=== PATIENT | female | born 1990 | race African-American/Black ===

== ENCOUNTER 2016-09-04 11:42 | Emergency (ER) | payer MEDICAID ==
[2016-09-04 12:00] VITALS: BP 124/80
--- NOTE | 2016-09-04 12:07 | ER Document Report ---
ED Medical Screen (RME) - General Stated Complaint: URINARY PROBLEM Notes: 3 days pyuria, urgency, no blood no abnl vaginal d/c or bleeding I have greeted and performed a rapid initial assessment of this patient. A comprehensive ED assessment and evaluation of the patient, analysis of test results and completion of the medical decision making process will be conducted by additional ED providers. - Related Data Allergies/Adverse Reactions: No Known Allergies Allergy (Unverified 09/04/16 12:06) Physical Exam - Vital signs Vitals: Temp Pulse Resp BP Pulse Ox 98.0 F 98 16 124/80 96 09/04/16 11:58 09/04/16 11:58 09/04/16 11:58 09/04/16 11:58 09/04/16 11:58 Course - Vital Signs Vital signs: Temp Pulse Resp BP Pulse Ox 98.0 F 98 16 124/80 96 09/04/16 11:58 09/04/16 11:58 09/04/16 11:58 09/04/16 11:58 09/04/16 11:58
[2016-09-04 13:14] LABS: AMORPHOUS SEDIMENT,URINE TRACE /HPF; APPEARANCE,URINE SLIGHTLY-CLOUDY; BILIRUBIN,URINE NEGATIVE (NEGATIVE); GLUCOSE, URINE NEGATIVE (NEGATIVE); KETONES,URINE NEGATIVE (NEGATIVE); LEUKOCYTE ESTERASE,URINE NEGATIVE (NEGATIVE); NITRITE,URINE NEGATIVE (NEGATIVE); PROTEIN,URINE NEGATIVE (NEGATIVE); URINE SPECIFIC GRAVITY 1.015
--- NOTE | 2016-09-04 14:30 | ER Document Report ---
ED General - General Chief Complaint: Urinary Problem Stated Complaint: URINARY PROBLEM Mode of Arrival: Ambulatory Information source: Patient Notes: 26 yr old female who is presents with complaints of right flank pain. Patient has had a history of kidney stones kidney infections. Patient notes this feels more like a kidney infection rather than a kidney stone. Denies any fevers or chills nausea vomiting or diarrhea. Patient denies any burning on urination,, patient does note hesitancy TRAVEL OUTSIDE OF THE [place] IN LAST 30 DAYS: No - HPI Onset: Just prior to arrival Onset/Duration: Sudden Quality of pain: Achy Severity: Mild Pain Level: 1 Associated symptoms: Nausea Exacerbated by: Denies Relieved by: Denies Similar symptoms previously: No Recently seen / treated by doctor: No - Related Data Allergies/Adverse Reactions: No Known Allergies Allergy (Unverified 09/04/16 12:06) Past Medical History - Social History Smoking Status: Never Smoker Cigarette use (# per day): No Chew tobacco use (# tins/day): No Smoking Education Provided: No Frequency of alcohol use: None Drug Abuse: None Family History: Reviewed & Not Pertinent Patient has suicidal ideation: No Patient has homicidal ideation: No Renal/ Medical History: Reports: Hx Kidney Stones. Denies: Hx Peritoneal Dialysis Surgical Hx: Negative - Immunizations Hx Diphtheria, Pertussis, Tetanus Vaccination: Yes Review of Systems - Review of Systems Notes: REVIEW OF SYSTEMS: CONSTITUTIONAL : Denies fever, chills, or sweats. Denies recent illness. EENT: Denies eye, ear, throat, or mouth pain or symptoms. Denies nasal or sinus congestion or discharge. Denies throat, tongue, or mouth swelling or difficulty swallowing. CARDIOVASCULAR: Denies chest pain. Denies palpitations or racing or irregular heart beat. Denies ankle edema. RESPIRATORY: Denies cough, cold, or chest congestion. Denies shortness of breath, difficulty breathing, or wheezing. GASTROINTESTINAL: admits to right flank pain GENITOURINARY: admits ot hesitancy FEMALE GENITOURINARY: Denies vaginal bleeding, heavy or abnormal periods, irregular periods. Denies vaginal discharge or odor. MUSCULOSKELETAL: Denies back or neck pain or stiffness. Denies joint pain or swelling. SKIN: Denies rash, lesions or sores. HEMATOLOGIC : Denies easy bruising or bleeding. LYMPHATIC: Denies swollen, enlarged glands. NEUROLOGICAL: Denies confusion or altered mental status. Denies passing out or loss of consciousness. Denies dizziness or lightheadedness. Denies headache. Denies weakness or paralysis or loss of use of either side. Denies problems with gait or speech. Denies sensory loss, numbness, or tingling. Denies seizures. PSYCHIATRIC: Denies anxiety or stress. Denies depression, suicidal ideation, or homicidal ideation. ALL OTHER SYSTEMS REVIEWED AND NEGATIVE. Dictation was performed using [employer] voice recognition software PHYSICAL EXAMINATION: GENERAL: Well-appearing, well-nourished and in no acute distress. HEAD: Atraumatic, normocephalic. EYES: Pupils equal round and reactive to light, extraocular movements intact, conjunctiva are normal. ENT: Nares patent, oropharynx clear without exudates. Moist mucous membranes. NECK: Normal range of motion, supple without lymphadenopathy LUNGS: Breath sounds clear to auscultation bilaterally and equal. No wheezes rales or rhonchi. HEART: Regular rate and rhythm without murmurs ABDOMEN: Soft, gravid abd, hr 154 Female : deferred Musculoskeletal: Normal range of motion, no pitting or edema. No cyanosis. NEUROLOGICAL: Cranial nerves grossly intact. Normal speech, normal gait. Normal sensory, motor exams PSYCH: Normal mood, normal affect. SKIN: Warm, Dry, normal turgor, no rashes or lesions noted. Physical Exam - Vital signs Vitals: Temp Pulse Resp BP Pulse Ox 98.0 F 98 16 124/80 96 09/04/16 11:58 09/04/16 11:58 09/04/16 11:58 09/04/16 11:58 09/04/16 11:58 Course - Re-evaluation Re-evalutation: 09/04/16 16:06 Patient will be treated as a kidney stone given that she is I cannot CT her at this time, she does have a small amount of blood in her urine denies any vaginal bleeding or discharge. There is no sign of infection. Patient will be treated symptomatically and has been instructed to return immediately if there is any worsening symptoms or concerns After performing a Medical Screening Examination, I estimate there is LOW risk for ACUTE APPENDICITIS, BOWEL OBSTRUCTION, ACUTE CHOLECYSTITIS, PERFORATED DIVERTICULITIS, INCARCERATED HERNIA, PANCREATITIS, PELVIC INFLAMMATORY DISEASE, PERFORATED ULCER, ECTOPIC , or TUBO-OVARIAN ABSCESS, thus I consider the discharge disposition reasonable. Also, there is no evidence or peritonitis , sepsis, or toxicity. The patient and I have discussed the diagnosis and risks , and we agree with discharging home with close follow-up with the understanding that symptoms and presentations can change. We also discussed returning to the Emergency Department immediately if new or worsening symptoms occur. We have discussed the symptoms which are most concerning (e.g., bloody stool, fever, changing or worsening pain, vomiting) that necessitate immediate return. - Vital Signs Vital signs: Temp Pulse Resp BP Pulse Ox 98.0 F 98 16 124/80 96 09/04/16 11:58 09/04/16 11:58 09/04/16 11:58 09/04/16 11:58 09/04/16 11:58 - Laboratory Laboratory results interpreted by me: 09/04/16 12:00 Urine Blood SMALL H Urine Urobilinogen 2.0 H Discharge - Discharge Clinical Impression: Kidney stone on right side Qualifiers: Weeks of gestation: unspecified Qualified Code(s): Z33.1 - state, incidental Condition: Stable Disposition: HOME, SELF-CARE Instructions: Kidney Stone ([facility]) Prescriptions: Hydrocodone/Acetaminophen [[place] 5-325 mg Tablet] 1 tab PO Q6 #10 tablet Promethazine HCl [Phenergan 25 mg Tablet] 25 - 50 mg PO ASDIR PRN #12 tablet PRN Reason: Tamsulosin HCl [Flomax 0.4 mg Cap.sr] 0.4 mg PO DAILY #7 cap.sr.24h
== END 2016-09-04 14:10 | disposition home or self-care (01) ==
LOC: ER 11:42
DX: N20.0 Calculus of kidney (principal); R10.9 Unspecified abdominal pain; Z33.1 Pregnant state, incidental; Z87.442 Personal history of urinary calculi
CPT/HCPCS: 81001; 87086; 99284

== ENCOUNTER 2016-12-27 01:43 | Outpatient (CLI) | payer MEDICAID ==
[2016-12-27 02:12] LABS: APPEARANCE,URINE CLEAR; BILIRUBIN,URINE NEGATIVE (NEGATIVE); GLUCOSE, URINE NEGATIVE (NEGATIVE); KETONES,URINE NEGATIVE (NEGATIVE); LEUKOCYTE ESTERASE,URINE NEGATIVE (NEGATIVE); NITRITE,URINE NEGATIVE (NEGATIVE); PROTEIN,URINE NEGATIVE (NEGATIVE); URINE SPECIFIC GRAVITY 1.004; UROBILINOGEN,URINE NEGATIVE mg/dL (<2.0)
[2016-12-27 02:43] LABS: URINE BARBITURATES SCREEN NEGATIVE; URINE METHADONE SCREEN NEGATIVE; URINE OPIATES LOW NEGATIVE; URINE PHENCYCLIDINE SCREEN NEGATIVE
[2016-12-27] MEDS ORDERED: HYDROXYZINE PAMOATE 50 MG CAPSULE ONE (03:36)
--- NOTE | 2016-12-27 03:51 | Non Stress Test Report ---
Non Stress Test Datetime Report Generated by CPN: 12/27/2016 03:51 DEMOGRAPHIC Test Number: 1 EGA NST: 38.1 INDICATION Indication for Study: Ordered by Provider MONITORING Monitor Explained: Monitor Explained; Test Explained; Patient Verbalized Understanding Time on Monitor: 12/27/2016 02:04 Time off Monitor: 12/27/2016 03:25 NST Duration: 81 NST INTERVENTIONS NST Interventions: PO Hydration; Reposition Patient Physician Notified NST: Dr. Vidal BABY A: [id number] BABY A Movement : Present Contraction Frequency : 1.5-8 FHR Baseline : 135 Accelerations : 15X15 Decelerations : None Variability : Moderate 6-25bpm NST Review: Meets Criteria for Reactive NST NST Review and Verified By : Param Lentz RN NST Results: Reactive NST REPORT Report Trigger: Send Report
== END 2016-12-27 03:54 | disposition home or self-care (01) ==
LOC: LC 01:43
PROVIDERS: ATTEND Obstetrics & Gynecology
PROC: 4A1HXCZ Monitoring of Products of Conception, Cardiac Rate, External Approach (ICD-10-PCS; principal; 2016-12-27)
DX: O47.1 False labor at or after 37 completed weeks of gestation (principal); Z3A.38 38 weeks gestation of pregnancy
CPT/HCPCS: 59025; 81005; 80307; J3490

== ENCOUNTER 2017-01-15 01:53 | Inpatient (IN) | payer MEDICAID ==
[2017-01-15] MEDS ORDERED: RINGERS SOLUTION,LACTATED 1,000 ML IV ONE (02:12)
[2017-01-15] MEDS ORDERED: RINGERS SOLUTION,LACTATED 1,000 ML IV PRN (02:12)
[2017-01-15] MEDS ORDERED: MISOPROSTOL 0.2 MG TABLET ONE (02:42)
[2017-01-15] MEDS ORDERED: LIDOCAINE 1% INJ-PF (10 MG/ML) 30 ML SDV ONE (02:42)
[2017-01-15] MEDS ORDERED: OXYTOCIN/NORMAL SALINE 20 UNIT/1,000 ML RTUINJ ONE (02:42)
[2017-01-15 02:46] LABS: ABSOLUTE BASOPHILS # (AUTO) 0.1 10^3/uL (0.0-0.2); ABSOLUTE EOSINOPHILS # (AUTO) 0.1 10^3/uL (0.0-0.6); ABSOLUTE LYMPHOCYTES (AUTO) 2.6 10^3/uL (0.5-4.7); ABSOLUTE MONOCYTES (AUTO) 0.9 10^3/uL (0.1-1.4); ABSOLUTE NEUT (AUTO) 4.1 10^3/uL (1.7-8.2); BASOPHILS % (AUTO) 1.1 % (0-2); EOSINOPHILS % (AUTO) 0.8 % (0-6); HEMATOCRIT 36.4 % (36.0-47.0); HEMOGLOBIN 12.1 g/dL (12.0-15.5); HGB HCT DIFFERENCE -0.1; LYMPHOCYTES % (AUTO) 33.7 % (13-45); MEAN CORPUSCULAR HEMOGLOBIN 30.1 pg (27.0-33.4); MEAN CORPUSCULAR HGB CONC 33.3 g/dL (32.0-36.0); MEAN CORPUSCULAR VOLUME 91 fl (80-97); MONOCYTES % (AUTO) 11.8 % (3-13); RED BLOOD COUNT 4.03 10^6/uL (3.72-5.28); RED CELL DISTRIBUTION WIDTH 13.7 % (11.5-14.0); SEGMENTED NEUTROPHILS % (AUTO) 52.6 % (42-78); WHITE BLOOD COUNT 7.9 10^3/uL (4.0-10.5)
[2017-01-15 03:17] LABS: APPEARANCE,URINE CLOUDY; BILIRUBIN,URINE NEGATIVE (NEGATIVE); GLUCOSE, URINE NEGATIVE (NEGATIVE); KETONES,URINE NEGATIVE (NEGATIVE); LEUKOCYTE ESTERASE,URINE NEGATIVE (NEGATIVE); NITRITE,URINE NEGATIVE (NEGATIVE); PROTEIN,URINE NEGATIVE (NEGATIVE); UROBILINOGEN,URINE NEGATIVE mg/dL (<2.0)
[2017-01-15 03:38] LABS: URINE BARBITURATES SCREEN NEGATIVE; URINE METHADONE SCREEN NEGATIVE; URINE OPIATES LOW NEGATIVE; URINE PHENCYCLIDINE SCREEN NEGATIVE
[2017-01-15 03:39] LABS: ALANINE AMINOTRANSFERASE 30 U/L (9-52); ALBUMIN 3.3 g/dL (3.5-5.0); ALKALINE PHOSPHATASE 159 U/L (38-126); ANION GAP 12 (5-19); ASPARTATE AMINO TRANSFERASE 19 U/L (14-36); BILIRUBIN,DIRECT 0.4 mg/dL (0.0-0.4); BILIRUBIN,TOTAL 0.4 mg/dL (0.2-1.3); BLOOD UREA NITROGEN 9 mg/dL (7-20); CALCIUM 9.1 mg/dL (8.4-10.2); CARBON DIOXIDE 18 mmol/L (22-30); CHLORIDE 109 mmol/L (98-107); CREATININE RESULT 0.81 mg/dL (0.52-1.25); GLUCOSE 96 mg/dL (75-110); LDH 423 U/L (313-618); POTASSIUM 4.2 mmol/L (3.6-5.0); URIC ACID 5.7 mg/dL (2.5-6.2)
[2017-01-15] MEDS ORDERED: ACETAMINOPHEN WITH CODEINE #3 TABLET ONE (04:32)
[2017-01-15] MEDS ORDERED: IBUPROFEN 800 MG TABLET ONE (04:32)
--- NOTE | 2017-01-15 05:39 | Delivery Summary ---
Del Sum A-C Datetime Report Generated by CPN: 01/15/2017 05:39 DELIVERY PERSONNEL DELIVERY PERSONNEL: [phone] Delivery Doctor:: Miguelina Flores MD Labor and Delivery Nurse:: Christine Aranda RN Nursery Nurse:: Nu Mcnulty RN Sausage Canner/PROPERTY INSPECTOR: Farnaz Green, ST MATERNAL INFORMATION Delivery Anesthesia: None Medications After Delivery: Pitocin Bolus-Please Comment; Pitocin Drip 20 Units/1000ml NSS Estimated Blood Loss (ml): 200 Maternal Complications: Precipitous Labor (<3hrs) LABOR SUMMARY EDC: 01/09/2017 00:00 No. Babies in Womb: 1 Attempted: No Labor Anesthesia: None LABOR INFORMATION Reason for Induction: Not Applicable Onset of Labor: 01/15/2017 02:00 Complete Dilatation: 01/15/2017 03:36 Oxytocin: N/A Group B Beta Strep: Negative Antibiotics # of Doses: 0 Steroids Given: None Reason Steroids Not Administered: Not Applicable MEMBRANES Membranes Rupture Method: Artificial Rupture of Membranes: 01/15/2017 03:07 Length of Rupture (hr): 0.57 Amniotic Fluid Color: Bloody Amniotic Fluid Amount: Small Amniotic Fluid Odor: Normal STAGES OF LABOR Stage 1 hr: 1 Stage 1 min: 36 Stage 2 hr: 0 Stage 2 min: 5 Stage 3 hr: 0 Stage 3 min: 4 Total Time in Labor hr: 1 Total Time in Labor min: 45 VAGINAL DELIVERY Episiotomy: None Laceration Extension: First Degree Laceration Type: Perineal Laceration Repair: Yes Laceration Repair Note: 2-0 chromic Sponge Count Correct: N/A Sharps Count Correct: Yes CSECTION DELIVERY Primary Indication: N/A Secondary Indication: N/A CSection Incidence: N/A Labor: N/A Elective: N/A CSection Incision: N/A BABY A INFORMATION Delivery Date/Time: 01/15/2017 03:41 Method of Delivery: Vaginal Born in Route : No : N/A Forceps: N/A Vacuum Extraction: N/A Shoulder Dystocia : No PRESENTATION/POSITION BABY A Presentation: Cephalic Cephalic Presentation: Vertex Vertex Position: Left Occipital Anterior Breech Presentation: N/A PLACENTA INFORMATION BABY A Placenta Delivery Time : 01/15/2017 03:45 Placenta Method of Delivery: Spontaneous Placenta Status: Delivered SCORES BABY A Heart Rate 1 min: >100 bpm Resp Effort 1 min: Good Cry Reflex Irritability 1 min: Cough or Sneeze or Pulls Away Muscle Tone 1 min: Active Motion Color 1 min: Body [place], Extremities Blue Resuscitation Effort 1 min: Tactile Stimulation SCORE 1 MIN: 9 Heart Rate 5 min: >100 bpm Resp Effort 5 min: Good Cry Reflex Irritability 5 min: Cough or Sneeze or Pulls Away Muscle Tone 5 min: Active Motion Color 5 min: Body [place], Extremities Blue Resuscitation Effort 5 min: Tactile Stimulation SCORE 5 MIN: 9 INFANT INFORMATION BABY A Gestational Age at Delivery: 40.6 Gestational Status: Full Term- 39- 40.6 Weeks Outcome : Liveborn Infant Condition : Stable Infant Sex: Female IDENTIFICATION BABY A Verification Date/Time: 01/15/2017 04:03 ID Band Number: [id number] Mother's Name Verified: Yes RN Verifying : Juanita Barrientos, RN _ Xiomara Mujica, RN WEIGHT/LENGTH BABY A Birthweight (gm): 3590 Weight (lb): 7 Weight (oz): 15 Length (in): 20.00 Length (cm): 50.80 CORD INFORMATION BABY A No. Cord Vessels: 3 Nuchal Cord : Around Neck x1, Loose Cord Blood Taken: Yes-For Eval (Mom's Blood Type - or O+) Infant Suction: Mouth ASSESSMENT BABY A Infant Complications: Decreased Variability; Multiple Variable Decels Respirations: Appears Normal Skin to Skin: Yes Skin to Skin Time (min): 25 Tracer Lathe Set Up Operator/ALS Called : No Infant Care By: L. Mcnulty, RN Transferred To: Remains with Mother BABY B INFORMATION : N/A SIGNATURES Signature: with User ID: [email or web address]
[2017-01-15] MEDS ORDERED: PSEUDOEPHEDRINE HCL 30 MG TABLET PO PRN (05:48)
[2017-01-15] MEDS ORDERED: MEASLES,MUMPS&RUBELLA VACC/PF 0.5 ML VIAL SUBCUT PRN (05:48)
[2017-01-15] MEDS ORDERED: ACETAMINOPHEN 650 MG SUPP.RECT PR PRN (05:48)
[2017-01-15] MEDS ORDERED: MAGNESIUM HYDROXIDE SUSP 30 ML UDCUP PO PRN (05:48)
[2017-01-15] MEDS ORDERED: DIBUCAINE 1% OINTMENT 28 GM TP PRN (05:48)
[2017-01-15] MEDS ORDERED: DIPHENHYDRAMINE HCL 25 MG CAPSULE PO PRN (05:48)
[2017-01-15] MEDS ORDERED: PROMETHAZINE HCL INJ 25 MG/1 ML VIAL IV PRN (05:48)
[2017-01-15] MEDS ORDERED: BENZOCAINE/MENTHOL AEROSOL SPRAY 56 ML TOP PRN (05:48)
[2017-01-15] MEDS ORDERED: NA PHOS,M-B/NA PHOS,DI-BA (ADULT) 133 ML ENEMA PR PRN (05:48)
[2017-01-15] MEDS ORDERED: ZOLPIDEM TARTRATE 5 MG TABLET PO PRN (05:48)
[2017-01-15] MEDS ORDERED: PROMETHAZINE HCL 25 MG SUPP.RECT PR PRN (05:48)
[2017-01-15] MEDS ORDERED: GLYCERIN/WITCH HAZEL LEAF 1 EACH MED..PAD TP PRN (05:48)
[2017-01-15] MEDS ORDERED: DIPH/PERTUSS(ACELL)/TETANUS VAC/PF 0.5 ML SYR (>=10YO) IM PRN (05:48)
[2017-01-15] MEDS ORDERED: PROMETHAZINE HCL 25 MG TABLET PO PRN (05:48)
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
[2017-01-15] MEDS: IBUPROFEN 800 MG TABLET PO SCH ×3 (06:46→21:59)
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
[2017-01-15] MEDS: ACETAMINOPHEN WITH CODEINE #3 TABLET PO PRN ×3 (10:47→21:59)
[2017-01-15] MEDS: FERROUS SULFATE 325 MG TABLET PO SCH ×2 (10:49→17:40)
[2017-01-15] MEDS: FAMOTIDINE 20 MG TABLET PO SCH ×2 (10:49→21:59)
[2017-01-15] MEDS: SENNOSIDES/DOCUSATE 8.6-50 MG 1 EACH TABLET PO SCH (10:49)
[2017-01-15] MEDS: DOCUSATE SODIUM 100 MG CAPSULE PO SCH ×2 (10:49→17:40)
[2017-01-15] MEDS: PRENATAL VITAMIN W-O CA NO5/FE FUMARATE/FA CAPSULE PO SCH (11:39)
[2017-01-16] MEDS: IBUPROFEN 800 MG TABLET PO SCH ×2 (05:31→14:27)
[2017-01-16 06:47] LABS: HEMATOCRIT 35.9 % (36.0-47.0); HEMOGLOBIN 12.2 g/dL (12.0-15.5); HGB HCT DIFFERENCE 0.7; MEAN CORPUSCULAR HEMOGLOBIN 30.4 pg (27.0-33.4); MEAN CORPUSCULAR HGB CONC 34.1 g/dL (32.0-36.0); MEAN CORPUSCULAR VOLUME 89 fl (80-97); RED BLOOD COUNT 4.03 10^6/uL (3.72-5.28); WHITE BLOOD COUNT 9.4 10^3/uL (4.0-10.5)
[2017-01-16 09:10] VITALS: BP 116/59
--- NOTE | 2017-01-16 09:33 | PDOC PROGRESS REPORT ---
Subjective-OB Subjective: Post Delivery Day: 26 year old. Denies any needs at this time. Ready to go home-asking for early discharge. Physical Exam (OB) Vital Signs: Temp Pulse Resp BP Pulse Ox 98 F 86 14 116/59 L 100 01/16/17 08:00 01/16/17 08:00 01/16/17 08:00 01/16/17 08:00 01/16/17 08:00 Intake & Output 01/15/17 01/16/17 01/17/17 06:59 06:59 06:59 Intake Total 120 Balance 120 Weight 99.4 kg - Lochia Lochia Amount: Scant < 10 ml Lochia Color: Rubra/Red - Abdomen Description: Tender, Soft, Round Hernia Present: No Bowel Sounds: Normoactive Flatus Presence: Absent Stool: No Fundal Description: Firm, Midline Fundal Height: u/u - u/2 Objective-Diagnostic Laboratory: 01/16/17 06:33 01/15/17 02:26 01/16/17 06:33 WBC 9.4 RBC 4.03 Hgb 12.2 Hct 35.9 L MCV 89 MCH 30.4 MCHC 34.1 RDW 14.0 Plt Count 136 L Assessment and Plan(PN) - Time Spent with Patient Medications reviewed and adjusted accordingly: Yes - Disposition Anticipated Discharge: Home
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
[2017-01-16] MEDS: FAMOTIDINE 20 MG TABLET PO SCH (09:54)
[2017-01-16] MEDS: SENNOSIDES/DOCUSATE 8.6-50 MG 1 EACH TABLET PO SCH (09:54)
[2017-01-16] MEDS: FERROUS SULFATE 325 MG TABLET PO SCH ×2 (09:54→17:31)
[2017-01-16] MEDS: DOCUSATE SODIUM 100 MG CAPSULE PO SCH ×2 (09:55→17:31)
[2017-01-16] MEDS: PRENATAL VITAMIN W-O CA NO5/FE FUMARATE/FA CAPSULE PO SCH (09:55)
[2017-01-16] MEDS: ACETAMINOPHEN WITH CODEINE #3 TABLET PO PRN (12:43)
== END 2017-01-16 19:00 | disposition home or self-care (01) | DRG 775 ==
LOC: LC 01:53 → LR 02:14 → 2S 06:12
PROVIDERS: ADMIT Obstetrics & Gynecology; ATTEND Obstetrics & Gynecology
PROC: 10E0XZZ Delivery of Products of Conception, External Approach (ICD-10-PCS; principal; 2017-01-15)
PROC: 0HQ9XZZ Repair Perineum Skin, External Approach (ICD-10-PCS; 2017-01-15)
PROC: 10907ZC Drainage of Amniotic Fluid, Therapeutic from Products of Conception, Via Natural or Artificial Opening (ICD-10-PCS; 2017-01-15)
PROC: 4A1HXCZ Monitoring of Products of Conception, Cardiac Rate, External Approach (ICD-10-PCS; 2017-01-15)
DX: O76 Abnormality in fetal heart rate and rhythm complicating labor and delivery (principal); O70.0 First degree perineal laceration during delivery; O62.3 Precipitate labor; O69.81X0 Labor and delivery complicated by cord around neck, without compression, not applicable or unspecified; Z28.21 Immunization not carried out because of patient refusal; Z87.891 Personal history of nicotine dependence; Z62.810 Personal history of physical and sexual abuse in childhood; Z3A.40 40 weeks gestation of pregnancy; Z37.0 Single live birth
CPT/HCPCS: 36415; 59025; 80053; 80307; 81005; 83615; 84550; 85025; 85027; 86592; 86850; 86900; 86901; J2590; J3490

== ENCOUNTER 2017-01-19 10:48 | Emergency (ER) | payer MEDICAID ==
--- NOTE | 2017-01-19 11:24 | ER Document Report ---
ED Medical Screen (RME) - General Chief Complaint: Rectal Bleeding Stated Complaint: LEG PAIN Time Seen by Provider: 01/19/17 11:14 Mode of Arrival: Ambulatory Information source: Patient TRAVEL OUTSIDE OF THE [place] IN LAST 30 DAYS: No - HPI Patient complains to provider of: Right calf pain, lower extremity swelling, rectal bleeding Onset: Other - 4 days Onset/Duration: Persistent Quality of pain: Achy, Fullness Severity: Moderate Pain Level: 3 Notes: 01/19/17 11:22 Patient is a 26-year-old female who is G 10 P4 with 1 prior miscarriage and 5 elective terminations, who is currently 4 days , presenting to the emergency room complaining of bilateral lower extremity swelling with right calf pain, and bright red blood per rectum with rectal pain, and constipation, patient gave 4 days ago by spontaneous vaginal delivery without complications, she was 40 weeks and 6 days, she was not induced, she does report , causing perineal tearing, but did not have an episiotomy, states she has 4 stitches. - Related Data Allergies/Adverse Reactions: No Known Allergies Allergy (Verified 01/19/17 10:51) Past Medical History - Social History Chew tobacco use (# tins/day): No Frequency of alcohol use: None Drug Abuse: None Renal/ Medical History: Reports: Hx Kidney Stones. Denies: Hx Peritoneal Dialysis Past Surgical History: Reports: Hx Kidney (Renal Surgery) - stent placed and removed for kidney stones - Immunizations Hx Diphtheria, Pertussis, Tetanus Vaccination: Yes Physical Exam - Vital signs Vitals: Temp Pulse Resp BP Pulse Ox 98.1 F 80 20 118/77 98 01/19/17 10:51 01/19/17 10:51 01/19/17 10:51 01/19/17 10:51 01/19/17 10:51 Course - Vital Signs Vital signs: Temp Pulse Resp BP Pulse Ox 98.1 F 80 20 118/77 98 01/19/17 10:51 01/19/17 10:51 01/19/17 10:51 01/19/17 10:51 01/19/17 10:51
[2017-01-19 11:53] LABS: ABSOLUTE EOSINOPHILS # (AUTO) 0.2 10^3/uL (0.0-0.6); ABSOLUTE LYMPHOCYTES (AUTO) 1.8 10^3/uL (0.5-4.7); ABSOLUTE MONOCYTES (AUTO) 0.5 10^3/uL (0.1-1.4); BASOPHILS % (AUTO) 0.7 % (0-2); EOSINOPHILS % (AUTO) 2.7 % (0-6); HEMATOCRIT 36.5 % (36.0-47.0); HGB HCT DIFFERENCE -0.5; LYMPHOCYTES % (AUTO) 28.1 % (13-45); MEAN CORPUSCULAR HGB CONC 32.8 g/dL (32.0-36.0); MEAN CORPUSCULAR VOLUME 91 fl (80-97); MONOCYTES % (AUTO) 7.4 % (3-13); RED CELL DISTRIBUTION WIDTH 13.6 % (11.5-14.0); SEGMENTED NEUTROPHILS % (AUTO) 61.1 % (42-78); WHITE BLOOD COUNT 6.5 10^3/uL (4.0-10.5)
[2017-01-19 11:55] LABS: APPEARANCE,URINE CLOUDY; BILIRUBIN,URINE NEGATIVE (NEGATIVE); GLUCOSE, URINE NEGATIVE (NEGATIVE); KETONES,URINE NEGATIVE (NEGATIVE); LEUKOCYTE ESTERASE,URINE MODERATE (NEGATIVE); NITRITE,URINE NEGATIVE (NEGATIVE); PROTEIN,URINE 100 mg/dL (NEGATIVE); URINE SPECIFIC GRAVITY 1.005; UROBILINOGEN,URINE NEGATIVE mg/dL (<2.0)
--- NOTE | 2017-01-19 12:05 | ER Document Report ---
ED General - General Chief Complaint: Rectal Bleeding Stated Complaint: LEG PAIN Time Seen by Provider: 01/19/17 11:14 Mode of Arrival: Ambulatory Information source: Patient Notes: 26 yo female c/o rectal pressure, inability to pass a stool she can feel in rectum. also has a external hemorrhoid which is bleeding. Having to strain a lot. Also c/o leg swelling. TRAVEL OUTSIDE OF THE [place] IN LAST 30 DAYS: No - Related Data Allergies/Adverse Reactions: No Known Allergies Allergy (Verified 01/19/17 10:51) Past Medical History - General Information source: Patient - Social History Smoking Status: Never Smoker Chew tobacco use (# tins/day): No Frequency of alcohol use: None Drug Abuse: None Lives with: Spouse/Significant other Family History: Reviewed & Not Pertinent Patient has suicidal ideation: No Patient has homicidal ideation: No Renal/ Medical History: Reports: Hx Kidney Stones. Denies: Hx Peritoneal Dialysis Past Surgical History: Reports: Hx Kidney (Renal Surgery) - stent placed and removed for kidney stones - Immunizations Hx Diphtheria, Pertussis, Tetanus Vaccination: Yes Review of Systems - Review of Systems Constitutional: No symptoms reported EENT: No symptoms reported Cardiovascular: No symptoms reported Respiratory: No symptoms reported Gastrointestinal: See HPI Genitourinary: No symptoms reported Female Genitourinary: No symptoms reported Musculoskeletal: No symptoms reported Skin: No symptoms reported Hematologic/Lymphatic: No symptoms reported Neurological/Psychological: No symptoms reported Physical Exam - Vital signs Vitals: Temp Pulse Resp BP Pulse Ox 98.1 F 80 20 118/77 98 01/19/17 10:51 01/19/17 10:51 01/19/17 10:51 01/19/17 10:51 01/19/17 10:51 Interpretation: Normal - General General appearance: Appears well, Alert - HEENT Head: Normocephalic, Atraumatic Eyes: Normal Conjunctiva: Normal Pupils: PERRL Neck: Supple. No: Lymphadenopathy - Respiratory Respiratory status: No respiratory distress Chest status: Nontender Breath sounds: Normal Chest palpation: Normal - Cardiovascular Rhythm: Regular Heart sounds: Normal auscultation Murmur: No - Abdominal Inspection: Normal Distension: No distension Bowel sounds: Normal Tenderness: Nontender. No: Tender Organomegaly: No organomegaly - Rectal Tenderness: Yes Hemorrhoids: External - thromboses hemorrhoid with 3 openings, clot present - Back Back: Normal, Nontender. No: CVA tenderness - Extremities General upper extremity: Normal inspection, Nontender, Normal color, Normal ROM , Normal temperature General lower extremity: Normal inspection, Nontender, Normal color, Normal ROM , Normal temperature, Normal weight bearing. No: Martin's sign - Neurological Neuro grossly intact: Yes Cognition: Normal Orientation: AAOx4 Kaylie Coma Scale Eye Opening: Spontaneous Kaylie Coma Scale Verbal: Oriented Kaylie Coma Scale Motor: Obeys Commands [place] Coma Scale Total: 15 Speech: Normal Motor strength normal: LUE, RUE, LLE, RLE Sensory: Normal - Psychological Associated symptoms: Normal affect, Normal mood - Skin Skin Temperature: Warm Skin Moisture: Dry Skin Color: Normal Course - Re-evaluation Re-evalutation: 01/19/17 13:19 pt does not want morphine because of nursing. venouse doppler ultrasound is negative 01/19/17 15:07 passed large fecal impaction, much relieved 01/23/17 00:36 - Vital Signs Vital signs: Temp Pulse Resp BP Pulse Ox 98.5 F 75 18 117/81 99 01/19/17 15:43 01/19/17 15:43 01/19/17 15:43 01/19/17 15:43 01/19/17 15:43 - Laboratory Result Diagrams: 01/19/17 11:25 01/19/17 11:25 Laboratory results interpreted by me: 01/19/17 01/19/17 11:25 11:30 Chloride 108 H Uric Acid 6.8 H Alkaline Phosphatase 146 H Albumin 3.3 L Urine Protein 100 H Urine Blood LARGE H Ur Leukocyte Esterase MODERATE H Procedures - Incision and Drainage Rectal Time completed: 15:08 Type: Simple Anesthetic type: 1% Lidocaine mL's of anesthetic: 5 Blade size: 11 Incision Method: Incision made by scalpel - clot evaucated, tissue reinserted into anal canal Discharge - Discharge Clinical Impression: resolved constipation, thrombosed hemorrhoid evacuation, Urinary tract infection Condition: Good Disposition: HOME, SELF-CARE Instructions: Constipation ([facility]), Incision of Thrombosed Hemorrhoids ([facility]), Urinary Tract Infection ([facility]), Cephalexin ([facility]) Additional Instructions: miralax capful in full glass of water daily see general surgery for hemorrhoid treatment use the suppository with steroid to help heel the tissue to er any concerns urine culture is pending Please complete the patient satisfaction survey if you get one, and return it.. If you do not receive a survey, then you can go to the [facility] website, [email or web address] and place your comments about your very good care. Thank you very much. It was a pleasure being your medical provider today. Prescriptions: Cephalexin Monohydrate [Keflex 500 mg Capsule] 500 mg PO QID #28 capsule Hydrocortisone Acetate [Anusol Hc 25 mg Supp.rect] 1 supp.rect RI BID #14 supp.rect Referrals: KATHE YAÑEZ MD [Primary Care Provider] - Follow up as needed KATHE MARTINEZ MD [ACTIVE STAFF] - Follow up as needed
[2017-01-19 12:08] LABS: ALANINE AMINOTRANSFERASE 37 U/L (9-52); ALBUMIN 3.3 g/dL (3.5-5.0); ALKALINE PHOSPHATASE 146 U/L (38-126); ANION GAP 9 (5-19); ASPARTATE AMINO TRANSFERASE 28 U/L (14-36); BILIRUBIN,DIRECT 0.3 mg/dL (0.0-0.4); BILIRUBIN,TOTAL 0.5 mg/dL (0.2-1.3); BLOOD UREA NITROGEN 10 mg/dL (7-20); CALCIUM 9.1 mg/dL (8.4-10.2); CARBON DIOXIDE 23 mmol/L (22-30); CHLORIDE 108 mmol/L (98-107); CREATININE RESULT 0.75 mg/dL (0.52-1.25); GLUCOSE 75 mg/dL (75-110); LDH 579 U/L (313-618); POTASSIUM 4.5 mmol/L (3.6-5.0); SODIUM 140.2 mmol/L (137-145); TOTAL PROTEIN 6.8 g/dL (6.3-8.2); URIC ACID 6.8 mg/dL (2.5-6.2)
[2017-01-19] MEDS ORDERED: CEPHALEXIN 500 MG CAPSULE PO ONE (12:12)
[2017-01-19] MEDS ORDERED: LIDOCAINE 2% URO-JET 5 ML KIT MM ONE (12:53)
[2017-01-19] MEDS ORDERED: NA PHOS,M-B/NA PHOS,DI-BA (ADULT) 133 ML ENEMA PR ONE (12:53)
[2017-01-19] MEDS ORDERED: MORPHINE SULFATE 10 MG/ML INJ IM ONE (13:10)
[2017-01-19 15:50] VITALS: BP 117/81
--- NOTE | 2017-01-19 22:57 | XCELERA REPORT ---
[address] [address] Lower Extremity Venous Evaluation Name: BEATRICE ESPINO Age: 26 yrs Gender: Female : 1990 Patient Status: Emergency Patient Location: ER Study Date: 01/19/2017 12:51 PM Procedure: Color flow and duplex imaging of the veins of the right lower extremity as well as the left Common Femoral vein. Reason For Study: RIGHT CALF PAIN, 4 DAYS POST Ordering Physician: JANNETTE KEE Performed By: Itzel Barton Right Sided Venous Evaluation Normal vessel filling wall to wall, compression and augmentation as well as Colour flow down to the infrageniculate veins. Left Sided Venous Evaluation The left common femoral vein is fully compressible. Spontaneous and phasic flow is present in the left common femoral vein. Critical Findings Called in to the ER at about 1600. Interpretation Summary No duplex evidence of DVT or obstruction in the right lower extremity nor in the left Common Femoral vein. : JANNETTE KEE > Mark Aguilar
== END 2017-01-19 15:50 | disposition home or self-care (01) ==
LOC: ER 10:48
PROC: 069Y0ZZ Drainage of Lower Vein, Open Approach (ICD-10-PCS; principal; 2017-01-19)
DX: O86.89 Other specified puerperal infections (principal); O87.2 Hemorrhoids in the puerperium; K59.00 Constipation, unspecified; Z87.442 Personal history of urinary calculi
CPT/HCPCS: 99284; 36415; 87086; 83615; 84550; 85025; 80053; 81001; 93971 ×2; 46083; J3490 ×2

== ENCOUNTER 2017-04-24 11:38 | Emergency (ER) | payer MEDICAID ==
[2017-04-24 11:56] VITALS: BP 128/106
[2017-04-24] MEDS ORDERED: IBUPROFEN 800 MG TABLET PO ONE (12:22)
--- NOTE | 2017-04-24 12:43 | ER Document Report ---
ED Fall - General Chief Complaint: Rib Pain Stated Complaint: RIB PAIN Time Seen by Provider: 04/24/17 12:10 Mode of Arrival: Ambulatory Information source: Patient Notes: 26-year-old female presents to ED for left rib pain after she fell to the bathroom floor last night injuring her left ribs. She states that as the day has gone on the pain is gotten worse. She is breathing easily and no acute distress noted she speaks in full sentences. TRAVEL OUTSIDE OF THE [place] IN LAST 30 DAYS: No - HPI Occurred: This morning Where: Home, Indoors Context: Fell from standing - Fell through the bathroom floor early this morning Associated symptoms: None Location of injury/pain: Other - Left rib pain Quality of pain: Achy, Sharp Severity: Moderate Pain Level: 3 - Related data Allergies/Adverse Reactions: No Known Allergies Allergy (Verified 04/24/17 11:48) Home Medications: Current Home Medications No Home Medications 04/24/17 [History] Past Medical History - General Information source: Patient - Social History Smoking Status: Current Every Day Smoker Cigarette use (# per day): Yes - 5 cigarettes a day Chew tobacco use (# tins/day): No Smoking Education Provided: Yes - Less than 1 minute Frequency of alcohol use: Rare Drug Abuse: None Lives with: Family Family History: Hyperlipidemia Patient has suicidal ideation: No Patient has homicidal ideation: No - Past Medical History Cardiac Medical History: Reports: None Pulmonary Medical History: Reports: None EENT Medical History: Reports: None Neurological Medical History: Reports: None Endocrine Medical History: Reports: None Renal/ Medical History: Reports: Hx Kidney Stones Malignancy Medical History: Reports: None GI Medical History: Reports: None Musculoskeltal Medical History: Reports None Skin Medical History: Reports None Psychiatric Medical History: Reports: None Traumatic Medical History: Reports: None Infectious Medical History: Reports: None Past Surgical History: Reports: Hx Kidney (Renal Surgery) - stent placed and removed for kidney stones - Immunizations Immunizations up to date: Yes Hx Diphtheria, Pertussis, Tetanus Vaccination: Yes Review of Systems - Review of Systems Constitutional: No symptoms reported EENT: No symptoms reported Cardiovascular: No symptoms reported Respiratory: Hurts to breathe, Other - Left lateral rib pain after fall onto the bathroom floor early a.m. Gastrointestinal: No symptoms reported Genitourinary: No symptoms reported Female Genitourinary: No symptoms reported Musculoskeletal: No symptoms reported Skin: No symptoms reported. denies: Change in color Hematologic/Lymphatic: No symptoms reported Neurological/Psychological: No symptoms reported Physical Exam - Vital signs Vitals: Temp Pulse Resp BP Pulse Ox 98.6 F 95 16 128/106 H 98 04/24/17 11:49 04/24/17 11:49 04/24/17 11:49 04/24/17 11:49 04/24/17 11:49 Interpretation: Normal - General General appearance: Appears well, Alert - HEENT Head: Normocephalic, Atraumatic Eyes: Normal Pupils: PERRL - Respiratory Respiratory status: No respiratory distress Chest status: Tender, Pain on movement, Pain with cough, Pain with deep breathing Breath sounds: Normal Chest palpation: Normal - Cardiovascular Rhythm: Regular Heart sounds: Normal auscultation Murmur: No - Abdominal Inspection: Normal Distension: No distension Bowel sounds: Normal Tenderness: Nontender Organomegaly: No organomegaly - Back Back: Normal, Nontender - Extremities General upper extremity: Normal inspection, Nontender, Normal color, Normal ROM , Normal temperature General lower extremity: Normal inspection, Nontender, Normal color, Normal ROM , Normal temperature, Normal weight bearing. No: Martin's sign - Neurological Neuro grossly intact: Yes Cognition: Normal Orientation: AAOx4 Kaylie Coma Scale Eye Opening: Spontaneous [place] Coma Scale Verbal: Oriented Kaylie Coma Scale Motor: Obeys Commands Kaylie Coma Scale Total: 15 Speech: Normal Motor strength normal: LUE, RUE, LLE, RLE Sensory: Normal - Psychological Associated symptoms: Normal affect, Normal mood - Skin Skin Temperature: Warm Skin Moisture: Dry Skin Color: Normal Course - Re-evaluation Re-evalutation: 04/24/17 13:33 Left rib pain due to fall to the bathroom floor no bruises lungs clear to auscultation rib x-rays negative discussed with patient and written report given to patient. Instructed patient on the need to take deep breaths and cough to prevent pneumonia. Patient instructed to use ibuprofen for her pain ice packs and warm packs and follow-up with her primary doctor. Patient instructed that smoking cigarettes is about 2 year until these ribs heal. - Vital Signs Vital signs: Temp Pulse Resp BP Pulse Ox 98.6 F 95 16 128/106 H 98 04/24/17 11:49 04/24/17 11:49 04/24/17 12:27 04/24/17 11:49 04/24/17 11:49 - Diagnostic Test Radiology reviewed: Image reviewed, Reports reviewed Discharge - Discharge Clinical Impression: Contusion of rib on left side Qualifiers: Encounter type: initial encounter Qualified Code(s): S20.212A - Contusion of left front wall of thorax, initial encounter Disposition: HOME, SELF-CARE Instructions: Family Physicians / Practices, Use of Hkcw-Rrk-Cgasjtz Ibuprofen ([facility]) Additional Instructions: Rib Contusion You have been diagnosed as having bruised ribs. It will usually take a few weeks for these injured ribs to heal. You should cough or take a deep breath at least every hour or two to prevent lung complications. You should not engage in any strenuous physical activity until released by your physician. The usual rule is "if it hurts, don' t do it." Return if you develop any of the following: (1) Fever or chills. (2) Persistent cough, coughing up blood, or shortness of breath. (3) Increasing pain. (4) Weakness, lightheadedness, or fainting. USE OF TYLENOL (ACETAMINOPHEN): Acetaminophen may be taken for pain relief or fever control. It's much safer than aspirin, offering a wider range of "safe" dosages. It is safe during . Some brand names are Tylenol, Panadol, Datril, Anacin 3, Tempra, and Liquiprin. Acetaminophen can be repeated every four hours. The following are maximum recommended dosages: WEIGHT Dose Drops Elixir Chewable( 80mg) (LBS.) drprs=droppers tsp=teaspoon 6 40 mg 0.4 ml (1/2) 6-11 80 mg 0.8 ml (full) tsp 1 tab 12-16 120 mg 1 1/2 drprs 3/4 tsp 1 1/2 tabs 17-23 160 mg 2 drprs 1 tsp 2 tabs 24-30 240 mg 3 drprs 1 1/2 tsp 3 tabs 30-35 320 mg 2 tsp 4 tabs 36-41 360 mg 2 1/4 tsp 4 1/2 tabs 42-47 400 mg 2 1/2 tsp 5 tabs 48-53 480 mg 3 tsp 6 tabs 54-59 520 mg 3 1/4 tsp 6 1/2 tabs 60-64 560 mg 3 1/2 tsp 7 tabs 65-70 600 mg 3 3/4 tsp 7 1/2 tabs 71-76 640 mg 4 tsp 8 tabs 77-82 720 mg 4 1/2 tsp 9 tabs 83-88 800 mg 5 tsp 10 tabs >89 pounds or adults 650 mg to 900 mg Acetaminophen can be repeated every four hours. Maximum dose not to exceed 4000 mg a day. These maximum recommended dosages are slightly higher than the dosages written on the product container, but these dosages are very safe and below the toxic dosage for acetaminophen. ICE PACKS: Apply ice packs frequently against the painful area. Many different schedules are recommended, such as "20 minutes on, 20 minutes off" or "one hour ice, two hours rest." If you need to work, you may need to go longer between ice treatments. You should plan to have the area ice packed AT LEAST one fourth of the time. The ice should be applied over the wrap, tape, or splint, or over a layer of cloth -- not directly against the skin. Some ice bags have a built-in cloth and can be put directly on the skin. WARM PACKS: After approximately two days, apply gentle heat (such as a heating pad or hot water bottle) for about 20 to 30 minutes about every two hours -- at least four times daily. Warmth and elevation will help you make a more rapid recovery , and will ease the pain considerably. Do not use HOT heat, and never apply heat for longer than 30 minutes. The continuous heat can invisibly damage skin and muscles -- even when no burn is seen on the surface. Damaged muscles can make you MORE sore. FOLLOW-UP CARE: If you have been referred to a physician for follow-up care, call the physician s office for an appointment as you were instructed or within the next two days. If you experience worsening or a significant change in your symptoms, notify the physician immediately or return to the Emergency Department at any time for re-evaluation. Forms: Elevated Blood Pressure, Smoking Cessation Education, Return to Work Referrals: YANI GARRETT MD [Primary Care Provider] - Follow up as needed
--- NOTE | 2017-04-24 13:08 | RADIOLOGY REPORT (SQ) ---
EXAM DESCRIPTION: RIBS LEFT W/PA CHEST COMPLETED DATE/TIME: 04/24/2017 12:59 pm REASON FOR STUDY: fell through floor pain in left ribs COMPARISON: None. TECHNIQUE: Frontal view of the chest and additional views of the left ribs acquired. NUMBER OF VIEWS: Three views LIMITATIONS: None. FINDINGS: FRONTAL CXR: No pneumothorax. No pleural effusion. No atelectasis or infiltrates. RIBS: No displaced rib fractures. No lytic or blastic bony lesions. OTHER: No other significant finding. IMPRESSION: NO PNEUMOTHORAX. NO DISPLACED RIB FRACTURES. COMMENT: SITE OF TRAUMA/COMPLAINT MARKED/STAMP COMPLETED: No TECHNICAL DOCUMENTATION: JOB ID: [id number] [employer]- All Rights Reserved
== END 2017-04-24 13:30 | disposition home or self-care (01) ==
LOC: ER 11:38
DX: S20.212A Contusion of left front wall of thorax, initial encounter (principal); W18.30XA Fall on same level, unspecified, initial encounter; Y92.002 Bathroom of unspecified non-institutional (private) residence as the place of occurrence of the external cause; F17.210 Nicotine dependence, cigarettes, uncomplicated; Z87.442 Personal history of urinary calculi
CPT/HCPCS: 99283; 71101; J3490

== ENCOUNTER 2017-05-17 06:38 | Emergency (ER) | payer MEDICAID ==
[2017-05-17] MEDS ORDERED: DIPHENHYDRAMINE HCL 50 MG CAPSULE PO ONE (07:38)
[2017-05-17] MEDS ORDERED: METHYLPREDNISOLONE INJ 125 MG/2 ML SDV IM ONE (07:38)
[2017-05-17] MEDS ORDERED: FAMOTIDINE 20 MG TABLET PO ONE (07:38)
--- NOTE | 2017-05-17 07:48 | ER Document Report ---
HPI - HPI Pain Level: Denies Notes: Patient is a 26-year-old female with no significant medical history who presents the ED complaining of hives to her arms bilaterally and small amount on her legs bilaterally began around 2330 last night. Patient states that the rash is itchy. She denies any recent illness, exposure to new chemicals or detergents, new foods, new medications, or known insect bites. Patient states that otherwise she still eating and drinking without any difficulties. She is urinating normally and having normal bowel movements. No other concerns or complaints at this time. Denies any drug allergies. Denies any headache, fever , neck pain, swelling of mouth/lips/tongue/throat, drooling, URI, sore throat, chest pain, palpitations, syncope, cough, shortness of breath, wheeze, dyspnea, abdominal pain, nausea/vomiting/diarrhea, urinary retention, dysuria, hematuria , loss of control of bowel or bladder, numbness/tingling, muscle paralysis/ weakness, or rash. - ROS Notes: REVIEW OF SYSTEMS: CONSTITUTIONAL : Denies fever, chills, or sweats. Denies recent illness. EENT: Denies eye, ear, throat, or mouth pain or symptoms. Denies nasal or sinus congestion or discharge. Denies throat, tongue, or mouth swelling or difficulty swallowing. CARDIOVASCULAR: Denies chest pain. Denies palpitations or racing or irregular heart beat. Denies ankle edema. RESPIRATORY: Denies cough, cold, or chest congestion. Denies shortness of breath, difficulty breathing, or wheezing. GASTROINTESTINAL: Denies abdominal pain or distention. Denies nausea, vomiting , or diarrhea. Denies blood in vomitus, stools, or per rectum. Denies black, tarry stools. Denies constipation. GENITOURINARY: Denies difficulty urinating, painful urination, burning, frequency, blood in urine, or discharge. MUSCULOSKELETAL: Denies back or neck pain or stiffness. Denies joint pain or swelling. SKIN: see hpi NEUROLOGICAL: Denies confusion or altered mental status. Denies passing out or loss of consciousness. Denies dizziness or lightheadedness. Denies headache. Denies weakness or paralysis or loss of use of either side. Denies problems with gait or speech. Denies sensory loss, numbness, or tingling. Denies seizures. PSYCHIATRIC: Denies anxiety or stress. Denies depression, suicidal ideation, or homicidal ideation. ALL OTHER SYSTEMS REVIEWED AND NEGATIVE. Dictation was performed using [employer] voice recognition software - CARDIOVASCULAR Cardiovascular: DENIES: Chest pain - REPRODUCTIVE Reproductive: REPORTS: : - DERM Skin Color: Normal Past Medical History - Social History Smoking Status: Never Smoker Chew tobacco use (# tins/day): No Frequency of alcohol use: None Drug Abuse: None Family History: Hyperlipidemia Patient has suicidal ideation: No Patient has homicidal ideation: No Renal/ Medical History: Reports: Hx Kidney Stones. Denies: Hx Peritoneal Dialysis Past Surgical History: Reports: Hx Kidney (Renal Surgery) - stent placed and removed for kidney stones - Immunizations Immunizations up to date: Yes Hx Diphtheria, Pertussis, Tetanus Vaccination: Yes Vertical Provider Document - CONSTITUTIONAL Agree With Documented VS: Yes Notes: PHYSICAL EXAMINATION: GENERAL: Well-appearing, well-nourished and in no acute distress. A&Ox4 HEAD: Atraumatic, normocephalic. EYES: Pupils equal round and reactive to light, extraocular movements intact, sclera anicteric, conjunctiva are normal. ENT: EAC clear b/l. TM's intact b/l without erythema, fluid, or perforation. Nares patent and without discharge. oropharynx clear without exudates. No tonsilar hypertrophy or erythema. Moist mucous membranes. No sinus tenderness. No angioedema noted. NECK: Normal range of motion, supple without lymphadenopathy. No rigidity/ meningismus. LUNGS: Breath sounds clear to auscultation bilaterally and equal. No wheezes rales or rhonchi. HEART: Regular rate and rhythm without murmurs, rubs, gallops. ABDOMEN: Soft, nontender, nondistended abdomen. No guarding, no rebound. No masses appreciated. Normal bowel sounds present. No CVA tenderness bilaterally. Musculoskeletal: Ext b/l: FROM to passive/active. Strength 5+/5. No focal deficits Extremities: No cyanosis, clubbing, or edema b/l. Peripheral pulses 2+. Capillary refill less than 3 seconds. NEUROLOGICAL: MMSE intact. Cranial nerves grossly intact. Normal speech, normal gait. Normal sensory, motor exams PSYCH: Normal mood, normal affect. SKIN: hives to the arms b/l, shoulders b/l, and thigh rt. - INFECTION CONTROL TRAVEL OUTSIDE OF THE [place] IN LAST 30 DAYS: No - RESPIRATORY O2 Sat by Pulse Oximetry: 92 Course - Re-evaluation Re-evalutation: 05/17/17 08:25 Patient is an afebrile, well-hydrated, 26-year-old female who presents to the ED with hives, not otherwise specified. Vitals are stable. PE is otherwise unremarkable. Solu-Medrol 125 mg, Pepcid 20 mg, and Benadryl 50 mg were given today. Pt has not had any worsening symptoms. She tolerated the injections well. Low suspicion/risk for any angioedema, resp compromise, sepsis, or other emergent condition at this time. Pt aware her condition can change from initial presentation and she needs to monitor symptoms closely and seek medical attention with any acute changes. Pt to take benadryl/pepcid at home and monitor for any allergic triggers. Recheck with your PCM in 2-3 days. Return to the ED with any worsening/concerning sx's otherwise as reviewed in discharge. Pt in agreement. - Vital Signs Vital signs: Temp Pulse Resp BP Pulse Ox 97.8 F 86 16 127/76 H 92 05/17/17 06:43 05/17/17 06:43 05/17/17 07:25 05/17/17 06:43 05/17/17 06:43 Discharge - Discharge Clinical Impression: Hives Condition: Stable Disposition: HOME, SELF-CARE Instructions: Acute Allergic Reaction ([facility]) Additional Instructions: Take medications as directed Benadryl/pepcid as directed Benadryl cream/cortisone cream may help with itching Epsom salt soaks may help Avoid allergen if detected Monitor for any worsening symptoms Recheck with your PCM in 2-3 days Return to the ED with any worsening symptoms and/or development of fever, headache, swelling of lips/tongue/throat/mouth, drooling, hoarseness, chest pain , palpitations, syncope, shortness of breath, trouble breathing, abdominal pain , n/v/d, blood in stool/urine, loss of control of bowel/bladder, urinary retention, muscle weakness/paralysis, numbness/tingling, weakness, or other worsening symptoms that are concerning to you. Forms: Elevated Blood Pressure Referrals: NAHUN ZAPATA DO [Primary Care Provider] - Follow up in 3-5 days
[2017-05-17 08:54] VITALS: BP 127/95
== END 2017-05-17 08:53 | disposition home or self-care (01) ==
LOC: ER 06:38
DX: L50.9 Urticaria, unspecified (principal)
CPT/HCPCS: 99283; 96372; J3490 ×2; J2930

== ENCOUNTER 2017-05-19 11:19 | Emergency (ER) | payer MEDICAID ==
[2017-05-19] MEDS ORDERED: DIPHENHYDRAMINE HCL 50 MG CAPSULE PO ONE (13:04)
[2017-05-19] MEDS ORDERED: FAMOTIDINE 20 MG TABLET PO ONE (13:04)
[2017-05-19] MEDS ORDERED: PREDNISONE 20 MG TABLET PO ONE (13:04)
--- NOTE | 2017-05-19 13:12 | ER Document Report ---
ED Allergic Reaction - General Chief Complaint: Allergic Reaction Stated Complaint: POSSIBLE ALLERGIC REACTION Time Seen by Provider: 05/19/17 12:38 Mode of Arrival: Ambulatory Information source: Patient Notes: 26-year-old female presented to ED for possible allergic reaction to something she is unsure what. She states that she had hives 2 days ago and was seen given a shot of steroids Pepcid and Benadryl. She states she got much better went home last night she felt like her face was swollen lips were swelling and she felt like she was having a little bit of trouble breathing than she states she became very panicked was not able to sleep the rest of the night. Patient states she cannot see an human factors ergonomist until next week she has been to her primary doctor and they have scheduled her appointment for next week. TRAVEL OUTSIDE OF THE [place] IN LAST 30 DAYS: No - HPI Onset: Other - 2 days ago Onset/Duration: Intermittent Quality of pain: No pain Severity: None Pain Level: Denies Identified cause: No Skin rash / itching: Facial, Extremities, Diffuse, "Redness", "Hives" Swelling: Face, Lip(s) Associated symptoms: None Similar symptoms previously: Yes Recently seen / treated by doctor: Yes - Related Data Allergies/Adverse Reactions: No Known Allergies Allergy (Verified 05/19/17 11:21) Past Medical History - General Information source: Patient - Social History Smoking Status: Current Every Day Smoker Cigarette use (# per day): Yes - 7 cigarettes a day Chew tobacco use (# tins/day): No Smoking Education Provided: Yes - Less than 2 minutes Frequency of alcohol use: Social Drug Abuse: None Occupation: [employer] Lives with: Family Family History: Hyperlipidemia, Malignancy. denies: Arthritis, CAD, COPD, CVA, DM, Hypertension, Thyroid Disfunction Patient has suicidal ideation: No Patient has homicidal ideation: No - Past Medical History Cardiac Medical History: Reports: None Pulmonary Medical History: Reports: None EENT Medical History: Reports: None Neurological Medical History: Reports: None Endocrine Medical History: Reports: None Renal/ Medical History: Reports: Hx Kidney Stones Malignancy Medical History: Reports: None GI Medical History: Reports: None Musculoskeltal Medical History: Reports None Skin Medical History: Reports None Psychiatric Medical History: Reports: None Traumatic Medical History: Reports: None Infectious Medical History: Reports: None Past Surgical History: Reports: Hx Kidney (Renal Surgery) - stent placed and removed for kidney stones - Immunizations Immunizations up to date: Yes Hx Diphtheria, Pertussis, Tetanus Vaccination: Yes Review of Systems - Review of Systems Constitutional: No symptoms reported EENT: Mouth swelling, Other - Lip swelling at home none noted in the emergency room Cardiovascular: No symptoms reported Respiratory: Short of breath - That she was short of breath at home but respirations regular unlabored in the emergency room. denies: Wheezing Gastrointestinal: No symptoms reported Genitourinary: No symptoms reported Female Genitourinary: No symptoms reported Musculoskeletal: No symptoms reported Skin: Other - She had hives at home with facial and mouth swelling. Minimal hives noted in the emergency room no swelling to the lips some puffiness to the cheeks. Hematologic/Lymphatic: No symptoms reported Neurological/Psychological: No symptoms reported -: Yes All other systems reviewed and negative Physical Exam - Vital signs Vitals: Temp Pulse Resp BP Pulse Ox 98.7 F 90 18 124/78 97 05/19/17 11:21 05/19/17 11:21 05/19/17 11:21 05/19/17 11:21 05/19/17 11:21 Interpretation: Normal - General General appearance: Appears well, Alert - HEENT Head: Normocephalic, Atraumatic Eyes: Normal Pupils: PERRL Ears: Normal External canal: Normal Tympanic membrane: Normal Sinus: Normal Nasal: Normal Mouth/Lips: No: Angioedema Mucous membranes: Normal Pharynx: Post nasal drainage. No: Blood in hypopharynx, Erythema, Exudate, Peritonsillar abscess, Retropharyngeal abscess, Tonsillar hypertrophy, Uvular edema, Potential airway comprom. Neck: Normal - Respiratory Respiratory status: No respiratory distress Chest status: Nontender Breath sounds: Normal Chest palpation: Normal - Cardiovascular Rhythm: Regular Heart sounds: Normal auscultation Murmur: No - Abdominal Inspection: Normal Distension: No distension Bowel sounds: Normal Tenderness: Nontender Organomegaly: No organomegaly - Back Back: Normal, Nontender - Extremities General upper extremity: Normal inspection, Nontender, Normal color, Normal ROM , Normal temperature General lower extremity: Normal inspection, Nontender, Normal color, Normal ROM , Normal temperature, Normal weight bearing. No: Martin's sign - Neurological Neuro grossly intact: Yes Cognition: Normal Orientation: AAOx4 [place] Coma Scale Eye Opening: Spontaneous [place] Coma Scale Verbal: Oriented Kaylie Coma Scale Motor: Obeys Commands [place] Coma Scale Total: 15 Speech: Normal Motor strength normal: LUE, RUE, LLE, RLE Sensory: Normal - Psychological Associated symptoms: Normal affect, Normal mood - Skin Skin Temperature: Warm Skin Moisture: Dry Skin Color: Normal Course - Re-evaluation Re-evalutation: 05/19/17 21:04 Patient was treated with prednisone and Pepcid and Benadryl all in the emergency room. Patient was discharged home with prescriptions for Zyrtec Pepcid prednisone and EpiPen. Patient to follow-up with her human factors ergonomist as previously scheduled. Instructions given on use of EpiPen and when to use it. Patient was speaking in full sentences, eating, drinking, and having no difficulty breathing at time of discharge. - Vital Signs Vital signs: Temp Pulse Resp BP Pulse Ox 98.2 F 93 14 120/97 H 97 05/19/17 13:25 05/19/17 13:25 05/19/17 13:25 05/19/17 13:25 05/19/17 13:25 Discharge - Discharge Clinical Impression: Allergic reaction Qualifiers: Encounter type: initial encounter Qualified Code(s): T78.40XA - Allergy, unspecified, initial encounter Condition: Stable Disposition: HOME, SELF-CARE Additional Instructions: ACUTE ALLERGIC REACTION: Your symptoms are due to an allergic reaction. Allergy can cause hives, swelling of the hands, feet, and face, hoarseness, and difficulty swallowing or breathing. It may be due to exposure to medication, animal dander, foods, infection, or insect bites. Medication is a common cause, even when prior use of this same medication caused no problems. Acute treatment may include adrenalin and antihistamines. Usually, the specific allergic agent can't be identified unless repeated episodes occur. Home treatment includes the following: (1) Stop any suspicious medications. This will be discussed with you. (2) Oral antihistamines for the next four to five days. Example, diphenhydramine (Benadryl) every four hours. (3) You may also use cimetidine (Tagamet), ranitidine (Zantac), or famotidine ( Pepcid) every four hours if diphenhydramine is not controlling itching and hives. (4) Avoid aspirin until the hives completely disappear. (5) Avoid hot baths or showers until the hives are completely gone. Call the doctor if faintness, difficulty swallowing, tightness in the chest , or wheezing occurs. EPINEPHRINE: An injection of epinephrine (also called adrenalin) is used to treat allergic reactions, asthma, and some other medical conditions. It is a stimulant medication that consticts blood vessels, relaxes smooth muscles such as in the bronchioles of the lung, elevates blood pressure, and increases heart rate. It can temporarily make you feel very nervous and shakey, but it's affects last only a short time, about 15 to 30 minutes at most. STEROID MEDICATION: You have been given a medicine of the cortisone/steroid class. This medication is used to control inflammation or allergy. It is usually only given for a short period of time, until the acute process subsides. There are usually no side effects from short-term use of cortisone-like medications. Some persons feel an increased sense of well-being and are not sleepy at bedtime. Long-term use of cortisone medications is best avoided, unless required for a severe condition. If your condition does not remit, or relapses after the course of corticosteroid medication, you should consult your physician. ACID-SUPPRESSING MEDICATION: You have a prescription for medicine which reduces the stomach's secretion of acid. Examples include Zantac, Tagament, and Pepcid. These drugs are often used to allow healing of ulcers or esophagitis. They may be needed to prevent recurrence of ulcers in some patients, or to prevent damage from acid reflux in the esophagus. Take all medication as prescribed, even after the pain is gone. Regular antacids may be added as needed if you have symptoms while taking this medicine. These medications sometimes are prescribed for allergic reactions because they have anti-histaminic effects and relieve the rash and itching of the reaction. There are usually no side effects from this medication. But, in rare cases and particularly in the elderly, serious problems can occur. Contact your doctor if there is fever, rash, hallucinations, confusion, or unusual bruising. Contact your doctor at once if you develop lightheadedness, black or bloody stool, or bloody vomitus. ANTIHISTAMINES: An antihistamine has been given and/or prescribed to control your symptoms. Antihistamines are used for many reasons, including itching, watering eyes, runny nose, allergic swelling, hives, and insect stings. Antihistamines may cause drowsiness, especially with the first dose. Do not operate machinery or drive while under the effects of the medication. Other common side effects include dry mouth and eyes. In older persons, antihistamines can occasionally cause urinary retention, constipation, and trouble focusing the eyes. Do not combine the medication with alcohol, or with any other medication without talking to your doctor. USE OF DIPHENHYDRAMINE: The use of diphenhydramine (Benadryl) has been recommended to control allergic symptoms. The 25 mg strength is available over- the-counter, as well as the elixir. This antihistamine is used for many symptoms. It's useful for itching, watering eyes and nose, allergic swelling, hives, and insect stings. The medication can be repeated four times daily. Age Elixir (12.5 mg/tsp) 25 mg pill 2-3 yr 1/2 tsp 4-8 yr 1 tsp 9-14 yr 2 tsp one tab adult 1-2 tabs Antihistamines may cause drowsiness, especially with the first dose. Do not operate machinery or drive while under the effects of the medication. Do not combine the medication with alcohol, or with any other medication without talking to your doctor. FOLLOW-UP CARE: If you have been referred to a physician for follow-up care, call the physician s office for an appointment as you were instructed or within the next two days. If you experience worsening or a significant change in your symptoms, notify the physician immediately or return to the Emergency Department at any time for re-evaluation. Prescriptions: Cetirizine HCl [Zyrtec 10 mg Tablet] 1 tab PO DAILY #14 tablet Epinephrine [Epipen] 0.3 mg IJ ASDIR PRN #1 auto.injct PRN Reason: Famotidine [Pepcid 20 mg Tablet] 20 mg PO BID #12 tablet Prednisone [Deltasone 20 mg Tablet] 3 tab PO DAILY 5 Days tablet Referrals: BRINA SEXTON PA-C [Primary Care Provider] - Follow up as needed
[2017-05-19 13:55] VITALS: BP 120/97
== END 2017-05-19 13:26 | disposition home or self-care (01) ==
LOC: ER 11:19
DX: L50.0 Allergic urticaria (principal); R06.02 Shortness of breath; R09.82 Postnasal drip; F17.210 Nicotine dependence, cigarettes, uncomplicated; Z71.6 Tobacco abuse counseling
CPT/HCPCS: 99283; J3490 ×2; J7512

== ENCOUNTER 2017-08-20 08:19 | Emergency (ER) | payer MEDICAID ==
[2017-08-20] MEDS ORDERED: FLUTICASONE NASAL SPRAY 50 MCG/SPRY 120 SPRAY/16 GM NASL ONE (09:23)
[2017-08-20] MEDS ORDERED: PSEUDOEPHEDRINE HCL 30 MG TABLET PO ONE (09:23)
[2017-08-20] MEDS ORDERED: LORATADINE 10 MG TABLET PO ONE (09:23)
[2017-08-20] MEDS ORDERED: GUAIFENESIN 600 MG TABLET.SA PO ONE (09:23)
[2017-08-20] MEDS ORDERED: IBUPROFEN 600 MG TABLET PO ONE (09:24)
--- NOTE | 2017-08-20 09:35 | ER Document Report ---
ED Flu Like - General Chief Complaint: Flu Symptoms Stated Complaint: COUGH Time Seen by Provider: 08/20/17 09:02 Mode of Arrival: Ambulatory Information source: Patient Notes: 27-year-old female presents to ED for cough cold congestion she states off and on since June. She states this time is been for a few weeks. She states she went on a cruise to [facility] in July and she felt better for a while and that she came back and she has been like this since then. She states she lives with her and children and only her and her are getting sick. She claims she is having productive cough with body aches and chills. She reports she had pneumonia diagnosed in June and she took her antibiotics. She is afebrile at this time alert oriented no acute distress speaks in full sentences and walks with a even steady gait. She does smoke 7 cigarettes a day TRAVEL OUTSIDE OF THE [place] IN LAST 30 DAYS: Yes - HPI Onset: Other Timing/Duration: Intermittent - See above Quality of pain: Achy Severity: Moderate Pain Level: 3 CO exposure: No Associated symptoms: Body/muscle aches, Chills, Productive cough, Fever, Rhinnorhea, Sinus pain/drainage Similar symptoms previously: Yes Recently seen / treated by doctor: No - Related Data Allergies/Adverse Reactions: tree nut Allergy (Verified 06/12/17 19:09) Past Medical History - General Information source: Patient - Social History Smoking Status: Current Every Day Smoker Cigarette use (# per day): Yes - 7 cigarettes a day Chew tobacco use (# tins/day): No Smoking Education Provided: Yes - 4 minutes Frequency of alcohol use: Occasional Drug Abuse: None Occupation: [employer] Lives with: Family Family History: COPD, Hyperlipidemia, Malignancy. denies: Arthritis, CAD, CVA, DM, Hypertension, Thyroid Disfunction Patient has suicidal ideation: No Patient has homicidal ideation: No - Past Medical History Cardiac Medical History: Reports: None Pulmonary Medical History: Reports: Hx Bronchitis, Hx Pneumonia EENT Medical History: Reports: None Neurological Medical History: Reports: None Endocrine Medical History: Reports: None Renal/ Medical History: Reports: Hx Kidney Stones Malignancy Medical History: Reports: None GI Medical History: Reports: None Musculoskeltal Medical History: Reports None Skin Medical History: Reports None Psychiatric Medical History: Reports: None Traumatic Medical History: Reports: None Infectious Medical History: Reports: None Past Surgical History: Reports: Hx Kidney (Renal Surgery) - stent placed and removed for kidney stones - Immunizations Immunizations up to date: Yes Hx Diphtheria, Pertussis, Tetanus Vaccination: Yes Review of Systems - Review of Systems Constitutional: Chills, Fever, Recent illness EENT: Nose congestion, Nose discharge, Sinus pressure, Sinus discharge Cardiovascular: No symptoms reported Respiratory: Cough, Sputum - green Gastrointestinal: No symptoms reported Genitourinary: No symptoms reported Female Genitourinary: No symptoms reported Musculoskeletal: No symptoms reported Skin: No symptoms reported Hematologic/Lymphatic: No symptoms reported Neurological/Psychological: No symptoms reported -: Yes All other systems reviewed and negative Physical Exam - Vital signs Vitals: Temp Pulse Resp BP Pulse Ox 98.6 F 91 15 125/88 H 99 08/20/17 08:24 08/20/17 08:24 08/20/17 08:24 08/20/17 08:24 08/20/17 08:24 Interpretation: Normal - General General appearance: Appears well, Alert - HEENT Head: Normocephalic, Atraumatic Eyes: Normal Pupils: PERRL Ears: Normal External canal: Normal Tympanic membrane: Normal Sinus: Frontal Nasal: Purulent discharge, Swelling Mucous membranes: Normal Pharynx: Post nasal drainage Neck: Normal - Respiratory Respiratory status: No respiratory distress Chest status: Nontender Breath sounds: Productive cough - green. No: Rales, Rhonchi, Stridor, Wheezing , Other Chest palpation: Normal - Cardiovascular Rhythm: Regular Heart sounds: Normal auscultation Murmur: No - Abdominal Inspection: Normal Distension: No distension Bowel sounds: Normal Tenderness: Nontender Organomegaly: No organomegaly - Back Back: Normal, Nontender - Extremities General upper extremity: Normal inspection, Nontender, Normal color, Normal ROM , Normal temperature General lower extremity: Normal inspection, Nontender, Normal color, Normal ROM , Normal temperature, Normal weight bearing. No: Martin's sign - Neurological Neuro grossly intact: Yes Cognition: Normal Orientation: AAOx4 Kaylie Coma Scale Eye Opening: Spontaneous [place] Coma Scale Verbal: Oriented [place] Coma Scale Motor: Obeys Commands Kaylie Coma Scale Total: 15 Speech: Normal Motor strength normal: LUE, RUE, LLE, RLE Sensory: Normal - Psychological Associated symptoms: Normal affect, Normal mood - Skin Skin Temperature: Warm Skin Moisture: Dry Skin Color: Normal Course - Re-evaluation Re-evalutation: 08/20/17 09:35 Chest x-ray ordered and patient will be given Claritin 10 mg Sudafed 30 mg Mucinex 600 mg Flonase 2 sprays each nostril ibuprofen 600 mg and then I will reassess her. 08/20/17 10:11 X-ray shows a persistent right middle lobe pneumonia. I discussed this with Dr. Ayon and the radiologist. They both agreed it would be logical to treat her for another week and then have her follow-up with her primary doctor. The radiologist states that it really looks like a pneumonia. - Vital Signs Vital signs: Temp Pulse Resp BP Pulse Ox 98.6 F 85 18 116/75 98 08/20/17 08:24 08/20/17 10:39 08/20/17 10:39 08/20/17 10:39 08/20/17 10:39 - Diagnostic Test Radiology reviewed: Image reviewed, Reports reviewed Discharge - Discharge Clinical Impression: Right middle lobe pneumonia Qualifiers: Pneumonia type: due to unspecified organism Qualified Code(s): J18.1 - Lobar pneumonia, unspecified organism URI (upper respiratory infection) Qualifiers: URI type: unspecified URI Qualified Code(s): J06.9 - Acute upper respiratory infection, unspecified Condition: Stable Disposition: HOME, SELF-CARE Instructions: Family Physicians / Practices Additional Instructions: PNEUMONIA: Your examination indicates that you have pneumonia. This is an infection of the lung tissue, usually caused by bacteria or a virus. Symptoms include cough, fever, shaking chills, chest pain, shortness of breath, and coughing up bloody sputum. Treatment for bacterial pneumonia includes rest, antibiotics for 10 to 14 days, increasing your clear liquid intake, a cool mist humidifier at your bedside, and fever medication. Often, a repeat chest X-ray is performed in a few weeks--even if you feel better--to ascertain whether the infection has completely resolved and no underlying lung problem is present. You should call the physician if you develop persistent vomiting, high fever that does not respond to fever medication, increasing shortness of breath , confusion, or lethargy. Also, failure to improve within two to three days is an indication for re-examination. DOXYCYCLINE: Doxycycline (Vibramycin, Doryx) is an antibiotic of the tetracycline family. This type of drug is useful for infections of the respiratory tract and genital tract, and is sometimes used for intestinal infections. Unlike most tetracyclines, doxycycline can be taken with food. It is longer acting, and (usually) less prone to side effects than regular tetracycline. Tetracycline antibiotics can stain immature teeth and SHOULD NOT BE TAKEN BY CHILDREN, NURSING MOTHERS, OR WOMEN. Tetracyclines can make you more prone to sunburn. Abdominal cramping, nausea, and diarrhea are occasional side effects. Women may experience vaginal yeast infections. Call the doctor at once if you develop hives, itching, shortness of breath , or lightheadedness. USE OF ACETAMINOPHEN (Tylenol): Acetaminophen may be taken for pain relief or fever control. It's much safer than aspirin, offering a wider range of "safe" dosages. It is safe during . Some brand names are Tylenol, Panadol, Datril, Anacin 3, Tempra, and Liquiprin. Acetaminophen can be repeated every four hours. The following are maximum recommended dosages: WEIGHT Dose Drops Elixir Chewable( 80mg) (LBS.) drprs=droppers tsp=teaspoon 6 40 mg 0.4 ml (1/2) 6-11 80 mg 0.8 ml (full) tsp 1 tab 12-16 120 mg 1 1/2 drprs 3/4 tsp 1 1/2 tabs 17-23 160 mg 2 drprs 1 tsp 2 tabs 24-30 240 mg 3 drprs 1 1/2 tsp 3 tabs 30-35 320 mg 2 tsp 4 tabs 36-41 360 mg 2 1/4 tsp 4 1/2 tabs 42-47 400 mg 2 1/2 tsp 5 tabs 48-53 480 mg 3 tsp 6 tabs 54-59 520 mg 3 1/4 tsp 6 1/2 tabs 60-64 560 mg 3 1/2 tsp 7 tabs 65-70 600 mg 3 3/4 tsp 7 1/2 tabs 71-76 640 mg 4 tsp 8 tabs 77-82 720 mg 4 1/2 tsp 9 tabs 83-88 800 mg 5 tsp 10 tabs >89 pounds or adults 650 mg to 900 mg Acetaminophen can be repeated every four hours. Maximum dose not to exceed 4000 mg a day. These maximum recommended dosages are slightly higher than the dosages written on the product container, but these dosages are very safe and below the toxic dosage for acetaminophen. You will treated in the emergency room with Claritin 10 mg p.o., Sudafed 30 mg p.o., Mucinex 600 mg p.o., Flonase 2 sprays each nostril, and ibuprofen 600 mg, preop respiratory infection and doxycycline 100 mg p.o. for your pneumonia. All except the doxycycline you can get [id number]. FOLLOW-UP CARE: If you have been referred to a physician for follow-up care, call the physician s office for an appointment as you were instructed or within the next two days. If you experience worsening or a significant change in your symptoms, notify the physician immediately or return to the Emergency Department at any time for re-evaluation. It is very important that you have your lungs reassessed in 1 week as this is a persistent pneumonia I have given you a different antibiotic but please be reassessed by a doctor inset within the next 7-10 days. Prescriptions: Ibuprofen 600 mg PO Q6HP PRN #14 tablet PRN Reason: Doxycycline Hyclate 100 mg PO BID #20 tablet Fluticasone Propionate [Flonase Nasal Dameron 50 Mcg/Dameron 16 gm] 2 sprays NASL Q12 #1 inhaler Guaifenesin [Mucinex] 600 mg PO BID #14 tablet.sa Loratadine [Claritin] 10 mg PO DAILY #14 capsule Pseudoephedrine HCl [Sudafed] 30 mg PO BID #14 tablet Forms: Smoking Cessation Education, Return to Work
--- NOTE | 2017-08-20 09:49 | RADIOLOGY REPORT (SQ) ---
EXAM DESCRIPTION: CHEST PA/LAT COMPLETED DATE/TIME: 08/20/2017 9:39 am REASON FOR STUDY: cough congestion COMPARISON: None. EXAM PARAMETERS: NUMBER OF VIEWS: two views TECHNIQUE: Digital Frontal and Lateral radiographic views of the chest acquired. RADIATION DOSE: NA LIMITATIONS: none FINDINGS: LUNGS AND PLEURA: Persistent abnormal density in the right middle lobe consistent with pne umonia. Little change since prior study. No new areas of abnormal density. No effusions. MEDIASTINUM AND HILAR STRUCTURES: No masses or contour abnormalities. HEART AND VASCULAR STRUCTURES: Heart normal size. No evidence for failure. BONES: No acute findings. HARDWARE: None in the chest. OTHER: No other significant finding. IMPRESSION: Persistent right middle lobe pneumonia, not significantly changed. TECHNICAL DOCUMENTATION: JOB ID: [id number] [employer]- All Rights Reserved
[2017-08-20 10:43] VITALS: BP 116/75
== END 2017-08-20 10:41 | disposition home or self-care (01) ==
LOC: ER 08:19
DX: J18.1 Lobar pneumonia, unspecified organism (principal); J06.9 Acute upper respiratory infection, unspecified; R05 Cough; M79.1 Myalgia; J34.89 Other specified disorders of nose and nasal sinuses; R50.9 Fever, unspecified; R09.81 Nasal congestion; F17.210 Nicotine dependence, cigarettes, uncomplicated; Z71.6 Tobacco abuse counseling; Z91.018 Allergy to other foods
CPT/HCPCS: 99283; 71046; J3490 ×4

== ENCOUNTER 2019-06-08 11:05 | Emergency (ER) | payer SELFPAY ==
[2019-06-08 11:11] VITALS: BP 125/69
--- NOTE | 2019-06-08 12:29 | RADIOLOGY REPORT (SQ) ---
EXAM DESCRIPTION: CHEST 2 VIEWS COMPLETED DATE/TIME: 06/08/2019 12:06 pm REASON FOR STUDY: sternal chestpain worse with inspiration COMPARISON: 2018 TECHNIQUE: Frontal and lateral radiographic views of the chest acquired. NUMBER OF VIEWS: Two view. LIMITATIONS: None. FINDINGS: LUNGS AND PLEURA: No opacities, masses or pneumothorax. No pleural effusion. MEDIASTINUM AND HILAR STRUCTURES: No masses or contour abnormalities. HEART AND VASCULAR STRUCTURES: Heart normal size. No evidence for failure. BONES: No acute findings. HARDWARE: None in the chest. OTHER: No other significant finding. IMPRESSION: NO SIGNIFICANT RADIOGRAPHIC FINDING IN THE CHEST. TECHNICAL DOCUMENTATION: JOB ID: [id number] [employer]- All Rights Reserved Reading location - IP/workstation name: [email or web address]
--- NOTE | 2019-06-08 12:58 | ER Document Report ---
ED General - General Chief Complaint: Chest Pain Stated Complaint: CHEST PAIN Time Seen by Provider: 06/08/19 11:57 Primary Care Provider: ANDREW GIBSON PA [Primary Care Provider] - Follow up as needed Notes: Patient is a 28-year-old female presents to the emergency department for chest wall pain. Patient voices for the last 2 days she has had a headache. States she has been taking [id number] Tylenol Motrin for said headache. States around 1:30 AM she did take 800 mg of Motrin and inevitably does feel better today. States she presents to the emergency department for her generalized chest pain. States approximately a week ago she was inhaling a cigarette. States she felt as it was hard to catch her breath. States she had a "coughing fit." States since then she has had anterior chest pain only when she takes a deep breath. Patient voices she has stopped smoking cigarettes. States she used to vape but states she has not moved for over a month now. Patient's denying marijuana smoking. Patient has no medical problems, takes no daily medications, has an allergy to tree nuts. TRAVEL OUTSIDE OF THE [place] IN LAST 30 DAYS: Yes COUNTRY TRAVELED TO/FROM: [facility] - Related Data Allergies/Adverse Reactions: tree nut Allergy (Verified 06/08/19 11:11) Past Medical History - General Information source: Patient - Social History Smoking Status: Current Every Day Smoker Chew tobacco use (# tins/day): No Frequency of alcohol use: Occasional Drug Abuse: None Family History: Malignancy, COPD, Hyperlipidemia Patient has suicidal ideation: No Patient has homicidal ideation: No Pulmonary Medical History: Reports: Hx Bronchitis, Hx Pneumonia Renal/ Medical History: Reports: Hx Kidney Stones. Denies: Hx Peritoneal Dialysis Past Surgical History: Reports: Hx Kidney (Renal Surgery) - stent placed and removed for kidney stones - Immunizations Immunizations up to date: Yes Hx Diphtheria, Pertussis, Tetanus Vaccination: Yes Review of Systems - Review of Systems Constitutional: denies: Fever EENT: No symptoms reported Cardiovascular: See HPI Respiratory: See HPI Gastrointestinal: No symptoms reported Genitourinary: No symptoms reported Female Genitourinary: No symptoms reported Musculoskeletal: No symptoms reported Skin: No symptoms reported Hematologic/Lymphatic: No symptoms reported Neurological/Psychological: See HPI Physical Exam - Vital signs Vitals: Temp Pulse Resp BP Pulse Ox 98.0 F 88 18 125/69 96 06/08/19 11:10 06/08/19 11:10 06/08/19 11:10 06/08/19 11:10 06/08/19 11:10 - Notes Notes: GENERAL: Alert, interacts well. No acute distress. HEAD: Normocephalic, atraumatic. EYES: Pupils equal, round, and reactive to light. Extraocular movements intact. ENT: Oral mucosa moist, tongue midline. NECK: Full range of motion. Supple. Trachea midline. LUNGS: Clear to auscultation bilaterally, no wheezes, rales, or rhonchi. No respiratory distress. HEART: Regular rate and rhythm. No murmur chest: No crepitus felt, no erythema or ecchymosis noted anterior, posterior chest wall. ABDOMEN: Soft, non-tender. Non-distended. Bowel sounds present in all 4 quadrants. EXTREMITIES: Moves all 4 extremities spontaneously. No edema, normal radial and dorsalis pedis pulses bilaterally. No cyanosis. BACK: no cervical, thoracic, lumbar midline tenderness. No saddle anesthesia, normal distal neurovascular exam. NEUROLOGICAL: Alert and oriented x3. Normal speech. cranial nerves II through XII grossly intact PSYCH: Normal affect, normal mood. SKIN: Warm, dry, normal turgor. No rashes or lesions noted. Course - Re-evaluation Re-evalutation: 06/08/19 12:56 Chest X-Ray 06/08/19 00:00 IMPRESSION: NO SIGNIFICANT RADIOGRAPHIC FINDING IN THE CHEST. EKG shows a sinus rhythm rate of 86, QTc 421, no ST segment elevations or depressions noted. Upon my initial assessment patient is playing a game on her cell phone, no apparent distress. Discussed with patient stopping smoking. Discussed negative chest x-ray potential muscular pain based on coughing fit. Discussed close follow-up with primary care provider. Patient's lung sounds are clear and equal in all s[place]am[place]. She does not hypoxic in the emergency department. Stable for discharge. - Vital Signs Vital signs: Temp Pulse Resp BP Pulse Ox 98.0 F 88 18 125/69 96 06/08/19 11:10 06/08/19 11:10 06/08/19 11:10 06/08/19 11:10 06/08/19 11:10 Discharge - Discharge Clinical Impression: Chest wall pain Condition: Stable Disposition: HOME, SELF-CARE Instructions: Chest Wall Pain ([facility]) Additional Instructions: As we discussed you have been seen and treated in the emergency department for your chest wall pain. Is been sure you continue to take [id number] Tylenol Motrin for generalized pain. Please also follow-up with your primary care provider in the next 12 to 24 hours. Please also refrain from smoking. Please return to the emergency department for any concerns. Forms: Smoking Cessation Education, Return to Work Referrals: ANDREW GIBSON PA [Primary Care Provider] - Follow up as needed
--- NOTE | 2019-06-08 16:40 | EKG REPORT ---
SEVERITY:- NORMAL ECG - SINUS RHYTHM : Confirmed by: Isaac Zurita MD 08-Jun-2019 16:38:33
== END 2019-06-08 13:47 | disposition home or self-care (01) ==
LOC: ER 11:05
DX: R07.89 Other chest pain (principal); F17.210 Nicotine dependence, cigarettes, uncomplicated; Z87.442 Personal history of urinary calculi
CPT/HCPCS: 71046; 93005; 93010; 99285

== ENCOUNTER 2019-10-30 02:13 | Emergency (ER) | payer BC, MEDICAID ==
[2019-10-30] MEDS ORDERED: ASPIRIN 325 MG TABLET PO ONE (02:35)
--- NOTE | 2019-10-30 02:37 | ER Document Report ---
ED General - General Chief Complaint: Chest Pain Stated Complaint: CHEST PAIN Time Seen by Provider: 10/30/19 02:27 Primary Care Provider: KARY WATSON, [employer] [NURSE PRACTITIONER] - Follow up as needed Notes: Patient is a 29-year-old female that comes emergency department for chief complaint of pain in the middle of her chest. She states she woke up with this this morning. She states it feels "sore". She states the pain is constant and has not resolved. She denies shortness of breath, injury, nausea, vomiting, a bdominal pain, flank pain, dizziness. She states that she had a mild cough for the past couple of days and she did have a sore throat a couple of days ago and this resolved. She denies fevers. She denies any other complaints. She states that she had a positive test in September, had an episode of bleeding, was never able to follow-up, states she thinks she miscarried but she still stacey ht be . This would be her eighth (). She now vapes instead of smoking, denies recreational drugs. Only other reported medical history is pneumonia once and kidney stones. TRAVEL OUTSIDE OF THE [place] IN LAST 30 DAYS: Yes - Related Data Allergies/Adverse Reactions: tree nut Allergy (Verified 06/08/19 11:11) Past Medical History - General Information source: Patient - Social History Smoking Status: Former Smoker Frequency of alcohol use: None Drug Abuse: None Lives with: Family Family History: Malignancy, COPD, Hyperlipidemia Patient has suicidal ideation: No Patient has homicidal ideation: No Pulmonary Medical History: Reports: Hx Bronchitis, Hx Pneumonia Renal/ Medical History: Reports: Hx Kidney Stones. Denies: Hx Peritoneal Dialysis Past Surgical History: Reports: Hx Kidney (Renal Surgery) - stent placed and removed for kidney stones - Immunizations Immunizations up to date: Yes Hx Diphtheria, Pertussis, Tetanus Vaccination: Yes Review of Systems - Review of Systems Constitutional: No symptoms reported EENT: No symptoms reported Cardiovascular: See HPI Respiratory: See HPI Gastrointestinal: No symptoms reported Genitourinary: No symptoms reported Female Genitourinary: No symptoms reported Musculoskeletal: No symptoms reported Skin: No symptoms reported Hematologic/Lymphatic: No symptoms reported Neurological/Psychological: No symptoms reported Physical Exam - Vital signs Vitals: Temp Pulse Resp BP Pulse Ox 98.4 F 93 18 136/90 H 99 10/30/19 02:16 10/30/19 02:16 10/30/19 02:16 10/30/19 02:16 10/30/19 02:16 - Notes Notes: GENERAL: Alert, interacts well. No acute distress. HEAD: Normocephalic, atraumatic. EYES: Pupils equal, round, and reactive to light. Extraocular movements intact. ENT: Oral mucosa moist, tongue midline. Oropharynx unremarkable. Airway patent. NECK: Full range of motion. Supple. Trachea midline. LUNGS: Clear to auscultation bilaterally, no wheezes, rales, or rhonchi. No respiratory distress. There is specific tenderness to the chest wall along the border of the sternum on both sides. Mainly between the ribs. No erythema, swelling, severe tenderness, or crepitus. Unremarkable otherwise. HEART: Regular rate and rhythm. No murmur ABDOMEN: Soft, non-tender. Non-distended. Bowel sounds present in all 4 quadrants. GENITOURINARY: Deferred EXTREMITIES: Moves all 4 extremities spontaneously. No edema, normal radial and dorsalis pedis pulses bilaterally. No cyanosis. BACK: no cervical, thoracic, lumbar midline tenderness. No saddle anesthesia, normal distal neurovascular exam. Moves all extremities in full range of motion. NEUROLOGICAL: Alert and oriented x3. Normal speech. Cranial nerves II through XII grossly intact. PSYCH: Normal affect, normal mood. SKIN: Warm, dry, normal turgor. No rashes or lesions noted. Course - Re-evaluation Re-evalutation: Chest x-ray normal, EKG negative, CBC and chemistry unremarkable. test is positive with hCG of 900, however patient was able to find her previous hCG and this was approximately 4000. This appears to be significantly downtrending, I do suspect miscarriage. Patient has no lower abdominal pain, vaginal bleeding, or flank pain on my evaluation. She also has very specific chest wall tenderness after mild cold symptoms. I suspect costochondritis. Very low suspicion of acute intrathoracic etiology. She is not tachycardic, short of breath, hypoxic, or febrile. Discussed with patient in detail. Discussed options. Patient is requesting treatment, she will be given Decadron. Discussed expectations, follow-up, return precautions. Patient states appreciation and agreement. Stable, smiling, well-appearing at time of discharge. - Vital Signs Vital signs: Temp Pulse Resp BP Pulse Ox 98.3 F 93 12 120/85 100 10/30/19 04:40 10/30/19 02:16 10/30/19 04:40 10/30/19 04:40 10/30/19 04:40 - Laboratory Result Diagrams: 10/30/19 02:30 10/30/19 02:30 Laboratory results interpreted by me: 10/30/19 02:30 Chloride 108 H ALT 42 H Beta HCG, Quant 914.70 H Discharge - Discharge Clinical Impression: Chest wall pain Chest pain Qualifiers: Chest pain type: unspecified Qualified Code(s): R07.9 - Chest pain, unspecified Condition: Stable Disposition: HOME, SELF-CARE Additional Instructions: Your work-up including EKG, chest x-ray, and labs are reassuring with no concerning findings. Your hormone is significantly lower from before, I do suspect a miscarriage, please follow-up closely with [facility] for additional monitoring and testing. Based on your exam and your symptoms I suspect that you have costochondritis, this does cause chest wall pain. You have been treated for this, you can take additional [id number] anti-inflammatories, apply heat to the area, and rest. Symptoms should simply resolve with time. Return if you worsen including difficulty breathing, spiking fever, severe worsening pain, vomiting, or any other concerning symptoms. Referrals: KARY WATSON, [employer] [NURSE PRACTITIONER] - Follow up as needed
[2019-10-30] MEDS ORDERED: ASPIRIN 81 MG TABLET, CHEWABLE ONE (02:39)
[2019-10-30] MEDS ORDERED: ASPIRIN 325 MG TABLET ONE (02:41)
[2019-10-30 02:50] LABS: ABSOLUTE BASOPHILS # (AUTO) 0.1 10^3/uL (0.0-0.2); ABSOLUTE EOSINOPHILS # (AUTO) 0.2 10^3/uL (0.0-0.6); ABSOLUTE LYMPHOCYTES (AUTO) 2.5 10^3/uL (0.5-4.7); ABSOLUTE MONOCYTES (AUTO) 0.9 10^3/uL (0.1-1.4); ABSOLUTE NEUT (AUTO) 4.9 10^3/uL (1.7-8.2); BASOPHILS % (AUTO) 1.2 % (0-2); HEMATOCRIT 38.4 % (36.0-47.0); HEMOGLOBIN 13.1 g/dL (12.0-15.5); LYMPHOCYTES % (AUTO) 28.9 % (13-45); MEAN CORPUSCULAR HEMOGLOBIN 31.2 pg (27.0-33.4); MEAN CORPUSCULAR VOLUME 92 fl (80-97); MONOCYTES % (AUTO) 10.9 % (3-13); PLATELET COUNT 240 10^3/uL (150-450); RED BLOOD COUNT 4.19 10^6/uL (3.72-5.28); RED CELL DISTRIBUTION WIDTH 12.7 % (11.5-14.0); TOTAL CELLS COUNTED % (AUTO) 100 %; WHITE BLOOD COUNT 8.7 10^3/uL (4.0-10.5)
[2019-10-30 03:05] LABS: ALBUMIN 3.9 g/dL (3.5-5.0); ALKALINE PHOSPHATASE 105 U/L (38-126); ANION GAP 8 (5-19); ASPARTATE AMINO TRANSFERASE 34 U/L (14-36); BILIRUBIN,DIRECT 0.3 mg/dL (0.0-0.4); BILIRUBIN,TOTAL 0.4 mg/dL (0.2-1.3); BLOOD UREA NITROGEN 14 mg/dL (7-20); CALCIUM 9.4 mg/dL (8.4-10.2); CARBON DIOXIDE 25 mmol/L (22-30); CHLORIDE 108 mmol/L (98-107); GLUCOSE 85 mg/dL (75-110); POTASSIUM 4.1 mmol/L (3.6-5.0); TOTAL PROTEIN 7.6 g/dL (6.3-8.2)
--- NOTE | 2019-10-30 04:11 | RADIOLOGY REPORT (SQ) ---
EXAM DESCRIPTION: XR CHEST 1 VIEW COMPLETED DATE/TME: 10/30/2019 00:00 CLINICAL HISTORY: 29 years, Female, chest pain (shield, positive test) COMPARISON: 06/08/2019 NUMBER OF VIEWS: One TECHNIQUE: AP view of the chest LIMITATIONS: None. FINDINGS: Lungs are clear. The heart is normal in size. There is no pneumothorax or pleural effusion. There is no acute fracture. IMPRESSION: No acute cardiopulmonary abnormality copyright 2010 [employer]- All Rights Reserved
[2019-10-30] MEDS ORDERED: DEXAMETHASONE SOD PHOS INJ 10 MG/1 ML VIAL IV ONE (04:27)
[2019-10-30 04:48] VITALS: BP 120/85
--- NOTE | 2019-10-30 08:35 | EKG REPORT ---
SEVERITY:- NORMAL ECG - SINUS RHYTHM : Confirmed by: Isaac Zurita MD 30-Oct-2019 08:34:17
== END 2019-10-30 04:51 | disposition home or self-care (01) ==
LOC: ER 02:13
DX: O26.899 Other specified pregnancy related conditions, unspecified trimester (principal); R07.9 Chest pain, unspecified; R07.89 Other chest pain; R05 Cough; J02.9 Acute pharyngitis, unspecified; F17.290 Nicotine dependence, other tobacco product, uncomplicated; Z87.442 Personal history of urinary calculi; Z3A.00 Weeks of gestation of pregnancy not specified
CPT/HCPCS: 93005; 99285; 96374; 36415; 84702; 85025; 80053; 84484; 71045; 93010; J1100

== ENCOUNTER 2020-02-17 14:27 | Emergency (ER) | payer BC, MEDICAID ==
[2020-02-17 14:32] VITALS: BP 147/89
[2020-02-17] MEDS ORDERED: ACETAMINOPHEN 325 MG TABLET PO ONE (15:30)
--- NOTE | 2020-02-17 15:48 | ER Document Report ---
ED Medical Screen (RME) - General Chief Complaint: Flank Pain Stated Complaint: RIGHT FLANK PAIN Time Seen by Provider: 02/17/20 15:27 Primary Care Provider: CHARITY MCCARTY MD [Primary Care Provider] - Follow up as needed TRAVEL OUTSIDE OF THE [place] IN LAST 30 DAYS: Yes - HPI Notes: 02/17/20 15:30 29-year-old female 6 weeks and 6 days presents for right flank pain that started x 2 days ago. reports a history of nephrolithasis in the past x 2 years ago. denies any n/v/d, abd pain. reports pain is colicky pain. denies any fevers or chills. Pain is 2 out of 5. Went to urgent care but they advised her to go to the emergency room for ultrasound. Denies any chest pain shortness of breath. Denies any vaginal pain or vaginal bleeding. Patient states that this does feel very similar to her previous episode of nephrolithiasis. I have greeted and performed a rapid initial assessment of this patient. A comprehensive ED assessment and evaluation of the patient, analysis of test results and completion of the medical decision making process will be conducted by additional ED providers. PHYSICAL EXAMINATION: GENERAL: Well-appearing, well-nourished and in no acute distress. CV: s1, s2 regular LUNGS: No respiratory distress abd: L cva tenderness Musculoskeletal: Normal range of motion NEUROLOGICAL: Normal speech, normal gait. SKIN: Warm, Dry, normal turgor, no rashes or lesions noted. - Related Data Allergies/Adverse Reactions: tree nut Allergy (Verified 02/17/20 15:24) Home Medications: vitamin. tylenol Past Medical History - Social History Chew tobacco use (# tins/day): No Frequency of alcohol use: None Drug Abuse: None Pulmonary Medical History: Reports: Hx Bronchitis, Hx Pneumonia Renal/ Medical History: Reports: Hx Kidney Stones. Denies: Hx Peritoneal Dialysis Past Surgical History: Reports: Hx Kidney (Renal Surgery) - stent placed and removed for kidney stones - Immunizations Immunizations up to date: Yes Hx Diphtheria, Pertussis, Tetanus Vaccination: Yes Physical Exam - Vital signs Vitals: Temp Pulse Resp BP Pulse Ox 98.4 F 87 20 147/89 H 99 02/17/20 14:31 02/17/20 14:31 02/17/20 14:31 02/17/20 14:31 02/17/20 14:31 Course - Vital Signs Vital signs: Temp Pulse Resp BP Pulse Ox 98.4 F 87 20 147/89 H 99 02/17/20 15:25 02/17/20 14:31 02/17/20 14:31 02/17/20 14:31 02/17/20 14:31 Doctor's Discharge - Discharge Referrals: CHARITY MCCARTY MD [Primary Care Provider] - Follow up as needed
[2020-02-17 15:59] LABS: ABSOLUTE BASOPHILS # (AUTO) 0.2 10^3/uL (0.0-0.2); ABSOLUTE EOSINOPHILS # (AUTO) 0.2 10^3/uL (0.0-0.6); ABSOLUTE LYMPHOCYTES (AUTO) 2.8 10^3/uL (0.5-4.7); ABSOLUTE NEUT (AUTO) 6.3 10^3/uL (1.7-8.2); BASOPHILS % (AUTO) 1.5 % (0-2); EOSINOPHILS % (AUTO) 1.8 % (0-6); HEMATOCRIT 41.5 % (36.0-47.0); LYMPHOCYTES % (AUTO) 26.5 % (13-45); MEAN CORPUSCULAR HEMOGLOBIN 31.1 pg (27.0-33.4); MEAN CORPUSCULAR HGB CONC 33.8 g/dL (32.0-36.0); MEAN CORPUSCULAR VOLUME 92 fl (80-97); MONOCYTES % (AUTO) 9.5 % (3-13); PLATELET COUNT 239 10^3/uL (150-450); RED CELL DISTRIBUTION WIDTH 12.9 % (11.5-14.0); SEGMENTED NEUTROPHILS % (AUTO) 60.7 % (42-78); TOTAL CELLS COUNTED % (AUTO) 100 %; WHITE BLOOD COUNT 10.4 10^3/uL (4.0-10.5)
[2020-02-17 16:02] LABS: APPEARANCE,URINE CLEAR; BILIRUBIN,URINE NEGATIVE (NEGATIVE); COLOR,URINE YELLOW; GLUCOSE, URINE NEGATIVE (NEGATIVE); KETONES,URINE NEGATIVE (NEGATIVE); LEUKOCYTE ESTERASE,URINE NEGATIVE (NEGATIVE); NITRITE,URINE NEGATIVE (NEGATIVE); PROTEIN,URINE NEGATIVE (NEGATIVE); URINE SPECIFIC GRAVITY 1.019
[2020-02-17 16:20] LABS: ALBUMIN 4.3 g/dL (3.5-5.0); ALKALINE PHOSPHATASE 103 U/L (38-126); ANION GAP 7 (5-19); ASPARTATE AMINO TRANSFERASE 38 U/L (14-36); BILIRUBIN,TOTAL 0.4 mg/dL (0.2-1.3); BLOOD UREA NITROGEN 11 mg/dL (7-20); CALCIUM 9.3 mg/dL (8.4-10.2); CARBON DIOXIDE 25 mmol/L (22-30); CHLORIDE 105 mmol/L (98-107); GLUCOSE 87 mg/dL (75-110); POTASSIUM 4.2 mmol/L (3.6-5.0); TOTAL PROTEIN 7.9 g/dL (6.3-8.2)
--- NOTE | 2020-02-17 17:32 | RADIOLOGY REPORT (SQ) ---
EXAM DESCRIPTION: U/S RETROPERITON (RENAL/AORTA) IMAGES COMPLETED DATE/TIME: 02/17/2020 4:57 pm REASON FOR STUDY: R flank pain, preganant COMPARISON: None. TECHNIQUE: Dynamic and static grayscale images acquired of the kidneys and bladder and recorded on P ACS. Additional selected color Doppler and spectral images recorded. LIMITATIONS: None. FINDINGS: RIGHT KIDNEY: The right kidney measures 10.6 x 5.9 x 4.8 cm, normal size. Normal echogeni city. No solid or suspicious masses. No hydronephrosis. No calcifications. LEFT KIDNEY: The left kidney measures 10.2 x 6.2 x 6.0 cm, normal size. Normal echogenicity. No johan d or suspicious masses. No hydronephrosis. No calcifications. BLADDER: No masses. Bilateral ureteral jets are not visualized. OTHER FINDINGS: The patient is . IMPRESSION: 1. NORMAL RENAL AND BLADDER ULTRASOUND. TECHNICAL DOCUMENTATION: JOB ID: [id number] 2010 [employer]- All Rights Reserved Reading location - IP/workstation name: [email or web address]
== END 2020-02-17 20:20 | disposition left against medical advice (07) ==
LOC: ER 14:27
DX: R10.9 Unspecified abdominal pain (principal); Z87.442 Personal history of urinary calculi
CPT/HCPCS: 99281; 36415; 84702; 85025; 80053; 81001; 76770; J3490

== ENCOUNTER → 2020-02-24 | Outpatient (CLI) | payer MEDICAID ==
--- NOTE | 2020-02-24 15:39 | RADIOLOGY REPORT (SQ) ---
EXAM DESCRIPTION: U/S [id number] TRNABD 1GES W/ODOP IMAGES COMPLETED DATE/TIME: 02/24/2020 2:26 pm REASON FOR STUDY: Z34.81 ENCOUNTER FOR SUPRVSN OF NORMAL , FIRST TRIMESTER Z34.81 ENCOUNTE R FOR SUPRVSN OF NORMAL , FIRST TRIM COMPARISON: None. TECHNIQUE: Transabdominal static and realtime grayscale images acquired of the pelvis. Additional se lected spectral and color Doppler images recorded. All images stored on PACs. bHCG: Unavailable CLINICAL DATES: Last menses 12/29/2019 LIMITATIONS: None. FINDINGS: FETUS: Single Living intrauterine . ULTRASOUND EGA: 7 weeks 5 days ULTRASOUND YAMILETH: 10/07/2020 EFW: Not applicable less than 20 weeks. CRL: 1.4 cm FHR: 155 beats per minute. SURVEY: Too early to assess. AMNIOTIC FLUID: Adequate amount. PLACENTA: Not yet developed due to early gestation. SUBCHORIONIC BLEED: No. SIZE OF BLEED: Not applicable. UTERUS: No masses. No anomalies. Uterus is 12 x 6.5 x 6 cm in size CERVICAL LENGTH: 3 cm in length. Closed. RIGHT ADNEXA: Normal ovary with normal vascular flow. Right ovary 3 x 2 x 2.6 cm No adnexal free flu id.No adnexal masses. LEFT ADNEXA: Normal ovary with normal vascular flow. Left ovary 3 x 1.8 x 1.7 cm No adnexal free flu id.No adnexal masses. FREE FLUID: None. OTHER: No other significant finding. IMPRESSION: LIVING INTRAUTERINE . EGA 7 weeks 5 days Trimester of : First trimester - 0 to 13 weeks. TECHNICAL DOCUMENTATION: JOB ID: [id number] [employer]- All Rights Reserved rev Reading location - IP/workstation name: [email or web address]
== END ==
LOC: RAD 13:48
PROVIDERS: ATTEND Nurse Practitioner Family
DX: Z34.81 Encounter for supervision of other normal pregnancy, first trimester (principal)
CPT/HCPCS: 76801